=== PATIENT | female | born 1960 | race Caucasian/White ===

== ENCOUNTER → 2016-12-12 | Outpatient (CLI) | payer OTHER ==
--- NOTE | 2016-12-12 15:00 | ECHOCARDIOGRAM REPORT ---
*NOTICE TO RECEIVING DEMOCRAT AGENCY This information is strictly Confidential and protected under [place] law. [place] law prohibits you from making any further disclosure of this information unless further disclosure is expressly permitted by the written consent of the person to whom it pertains or is authorized by law. A general authorization for the release of medical or other information is not sufficient for this purpose. Hospital accepts no responsibility if the information is made available to any other person, INCLUDING THE PATIENT. Interpretation Summary * Name: SHAZIA PEDRAZA Study Date: 12/12/2016 01:42 PM BP: 145/68 mmHg * Patient Location: [facility] HR: 81 * : 1960 (M/d/yyyy) Gender: Female Height: 64 in * Age: 56 yrs Ethnicity: [place] Weight: 182 lb * Ordering Physician: Samantha Gamez * Referring Physician: Samantha Gamez * Performed By: Raya Ayala RDCS * * Reason For Study: Murmurs * BSA: 1.9 m2 * -- Conclusions -- * The left ventricle is borderline dilated. * Left ventricular systolic function is normal. * Grade I diastolic dysfunction, (abnormal relaxation pattern). * Right ventricular systolic pressure is normal. Procedure Details * A complete two-dimensional transthoracic echocardiogram was performed (2D, M-mode, Doppler and color flow Doppler). Left Ventricle * The left ventricle is borderline dilated. * There is normal left ventricular wall thickness. * Ejection Fraction = 65-70%. * Left ventricular systolic function is normal. * Grade I diastolic dysfunction, (abnormal relaxation pattern). * The left ventricular wall motion is normal. Right Ventricle * The right ventricle is normal in size and function. Atria * The left atrial size is normal. * Right atrial size is normal. Mitral Valve * The mitral valve anatomy is normal. * There is no mitral regurgitation noted. Tricuspid Valve * The tricuspid valve is not well visualized, but is grossly normal. * There is mild tricuspid regurgitation. * Right ventricular systolic pressure is normal. Aortic Valve * The aortic valve is normal in structure and function. * No hemodynamically significant valvular aortic stenosis. * There is no significant aortic regurgitation. Pericardium/Pleural * There is no pericardial effusion. MMode 2D Measurements and Calculations IVSd 0.74 cm LVIDd 5.2 cm LVIDs 3.0 cm LVPWd 0.81 cm IVS/LVPW 0.91 FS 42.2 % EDV(Teich) 127.0 ml ESV(Teich) 34.5 ml EF(Teich) 72.8 % EDV(cubed) 137.1 ml ESV(cubed) 26.5 ml EF(cubed) 80.6 % LV mass(C)d 136.9 grams LV mass(C)dI 72.9 grams/m\S\2 SV(Teich) 92.5 ml SI(Teich) 49.2 ml/m\S\2 SV(cubed) 110.5 ml SI(cubed) 58.8 ml/m\S\2 Ao root diam 2.7 cm Ao root area 5.7 cm\S\2 ACS 1.6 cm LA dimension 3.1 cm asc Aorta Diam 2.8 cm LA/Ao 1.2 LVOT diam 1.9 cm LVOT area 2.8 cm\S\2 LVAd ap4 29.3 cm\S\2 LVLd ap4 7.6 cm EDV(MOD-sp4) 93.7 ml EDV(sp4-el) 96.2 ml LVAs ap4 14.7 cm\S\2 LVLs ap4 5.7 cm ESV(MOD-sp4) 32.4 ml ESV(sp4-el) 32.5 ml EF(MOD-sp4) 65.4 % EF(sp4-el) 66.2 % LVAd ap2 17.8 cm\S\2 LVLd ap2 6.5 cm EDV(MOD-sp2) 40.3 ml EDV(sp2-el) 41.6 ml LVAs ap2 9.4 cm\S\2 LVLs ap2 5.6 cm ESV(MOD-sp2) 13.4 ml ESV(sp2-el) 13.3 ml EF(MOD-sp2) 66.7 % EF(sp2-el) 68.0 % LVLd %diff -17.38 % EDV(MOD-bp) 66.0 ml LVLs %diff -1.01 % ESV(MOD-bp) 20.9 ml EF(MOD-bp) 68.4 % SV(MOD-sp4) 61.3 ml SI(MOD-sp4) 32.6 ml/m\S\2 SV(MOD-sp2) 26.9 ml SI(MOD-sp2) 14.3 ml/m\S\2 SV(MOD-bp) 45.2 ml SI(MOD-bp) 24.0 ml/m\S\2 SV(sp4-el) 63.7 ml SI(sp4-el) 33.9 ml/m\S\2 SV(sp2-el) 28.3 ml SI(sp2-el) 15.0 ml/m\S\2 Doppler Measurements and Calculations MV E max jose manuel 96.0 cm/sec MV A max jose manuel 110.1 cm/sec MV E/A 0.87 MV dec time 0.26 sec Ao V2 max 236.8 cm/sec Ao max PG 22.4 mmHg Ao max PG (full) 9.1 mmHg RADHA(V,A) 2.2 cm\S\2 RADHA(V,D) 2.2 cm\S\2 LV V1 max PG 13.3 mmHg LV V1 max 182.4 cm/sec PA V2 max 139.8 cm/sec PA max PG 7.8 mmHg PA acc slope 621.5 cm/sec\S\2 PA acc time 0.15 sec TR max jose manuel 200.3 cm/sec PA pr(Accel) 10.9 mmHg
== END | disposition home or self-care (01) ==
LOC: C.CPL 13:33
PROVIDERS: ATTEND Family Medicine
DX: R01.1 Cardiac murmur, unspecified (principal)

== ENCOUNTER → 2016-12-17 | Outpatient (CLI) | payer OTHER ==
[2016-12-17 17:49] LABS: URINE APPEARANCE CLEAR (CLEAR); URINE BILIRUBIN NEG (NEG); URINE COLOR YELLOW; URINE NITRITE NEG (NEG); URINE SPECIFIC GRAVITY 1.006 (1.000-1.030); UROBILINOGEN NEG (NEG); ZZUR CULT IF INDIC CLEAN CATCH NO
[2016-12-17 17:55] LABS: MANUAL MICROSCOPIC REQUIRED? NO; REVIEW REQ? NO
[2016-12-17 18:14] LABS: ALT/SGPT 32 U/L (12-78); AST/SGOT 70 U/L (15-37); BLOOD UREA NITROGEN 4 mg/dl (7-18); BUN/CREATININE RATIO 5.6 (10-20); CALCIUM 8.4 mg/dl (8.5-10.1); CARBON DIOXIDE 23 mmol/L (21-32); CHLORIDE 109 mmol/L (98-107); CREATININE 0.77 mg/dl (0.60-1.20); GLUCOSE 108 mg/dl (70-99); POTASSIUM 3.4 mmol/L (3.5-5.1); SODIUM 141 mmol/L (136-145)
[2016-12-17 18:16] LABS: ALB/GLOB RATIO 0.7 (0.9-2); ALKALINE PHOSPHATASE 140 U/L (45-117)
== END | disposition home or self-care (01) ==
LOC: C.LABBFT 15:23
PROVIDERS: ATTEND Family Medicine
DX: R30.0 Dysuria (principal); K74.60 Unspecified cirrhosis of liver

== ENCOUNTER → 2017-01-23 | Outpatient (CLI) | payer OTHER ==
[2017-01-23 16:46] LABS: ALT/SGPT 42 U/L (12-78); AST/SGOT 69 U/L (15-37); BLOOD UREA NITROGEN 7 mg/dl (7-18); BUN/CREATININE RATIO 7.9 (10-20); CALCIUM 8.8 mg/dl (8.5-10.1); CARBON DIOXIDE 27 mmol/L (21-32); CHLORIDE 107 mmol/L (98-107); GLUCOSE 108 mg/dl (70-99); POTASSIUM 3.9 mmol/L (3.5-5.1); SODIUM 139 mmol/L (136-145)
[2017-01-23 16:49] LABS: ALB/GLOB RATIO 0.7 (0.9-2); ALKALINE PHOSPHATASE 144 U/L (45-117)
== END | disposition home or self-care (01) ==
LOC: C.LABBFT 15:51
PROVIDERS: ATTEND Family Medicine
DX: K74.60 Unspecified cirrhosis of liver (principal)

== ENCOUNTER → 2017-02-14 | Outpatient (CLI) | payer OTHER ==
--- NOTE | 2017-02-14 07:46 | DIAGNOSTIC IMAGING REPORT ---
ABDOMINAL ULTRASOUND, RIGHT UPPER QUADRANT HISTORY: K74.60 Unspecified cirrhosis of liver. COMPARISON: None. FINDINGS: There is coarsening of hepatic echotexture. The liver is heterogeneous. No hepatic lesions are identified although sensitivity is diminished on this exam. There is no biliary ductal dilatation status post cholecystectomy. The common bile duct measures 3 mm in caliber. The pancreatic body is normal. The head and tail are obscured. There is no right hydronephrosis. IMPRESSION: 1. Coarsening of hepatic echotexture indicative of cirrhosis. No hepatic lesions identified although sensitivity diminished on this exam. 2. No biliary ductal dilatation status post cholecystectomy. Electronically signed by: Zachariah Srinivasan M.D. 02/14/2017 7:44 AM Dictated Date/Time: 02/14/2017 7:42 AM
== END | disposition home or self-care (01) ==
LOC: C.ULTR 06:57
PROVIDERS: ATTEND Physician Assistant
DX: K74.60 Unspecified cirrhosis of liver (principal)

== ENCOUNTER → 2017-02-20 | Outpatient (CLI) | payer OTHER ==
[2017-02-20 12:41] LABS: CHOLESTEROL/HDL RATIO 3.9
== END | disposition home or self-care (01) ==
LOC: C.LABBFT 07:42
PROVIDERS: ATTEND Family Medicine
DX: Z00.00 Encounter for general adult medical examination without abnormal findings (principal); Z13.1 Encounter for screening for diabetes mellitus; Z13.220 Encounter for screening for lipoid disorders

== ENCOUNTER → 2017-02-24 | Outpatient (CLI) | payer OTHER ==
[2017-02-24 16:51] LABS: INR 1.2 (0.9-1.1); PROTHROMBIN TIME (PATIENT) 12.8 SECONDS (9.0-12.0)
[2017-02-24 17:01] LABS: ALT/SGPT 33 U/L (12-78); BLOOD UREA NITROGEN 8 mg/dl (7-18); CARBON DIOXIDE 23 mmol/L (21-32); CHLORIDE 106 mmol/L (98-107); GLUCOSE 154 mg/dl (70-99); POTASSIUM 3.5 mmol/L (3.5-5.1); SODIUM 138 mmol/L (136-145)
[2017-02-24 17:04] LABS: ALB/GLOB RATIO 0.6 (0.9-2); ALKALINE PHOSPHATASE 120 U/L (45-117); AST/SGOT 54 U/L (15-37)
[2017-02-24 17:15] LABS: BASO % 0.3 %; BASO ABS # 0.02 K/uL (0-0.2); COMPLETE YES; EOS % 1.4 %; HEMATOCRIT 38.4 % (37-47); IG% 0.2 %; LYMPH % 35.4 %; LYMPH ABS # 2.05 K/uL (1.2-3.4); MEAN CELL VOLUME 96.7 fL (80-100); MEAN CORPUSCULAR HGB CONC 35.2 g/dl (32-36); MONO % 6.2 %; NEUT % 56.5 %; PLATELET COUNT 81 K/uL (130-400); PLT ESTIMATE DECREASED; RED BLOOD COUNT 3.97 M/uL (4.2-5.4); WHITE BLOOD COUNT 5.79 K/uL (4.8-10.8)
[2017-02-26 10:31] LABS: AFP TUMOR MARKER SERUM 6.4 NG/ML (<6.1)
== END | disposition home or self-care (01) ==
LOC: C.LAB 15:56
PROVIDERS: ATTEND Physician Assistant
DX: K74.60 Unspecified cirrhosis of liver (principal); C56.9 Malignant neoplasm of unspecified ovary; C78.6 Secondary malignant neoplasm of retroperitoneum and peritoneum

== ENCOUNTER → 2017-03-07 | Outpatient (CLI) | payer OTHER ==
[~2017-03-07] MED LIST: GADOXETATE DISODIUM (NON-WT BASED PROCEDURE) IV PRN
--- NOTE | 2017-03-07 10:34 | DIAGNOSTIC IMAGING REPORT ---
LIVER MRI WITH AND WITHOUT INTRAVENOUS CONTRAST HISTORY: K74.60 Unspecified cirrhosis of [id number] Abnormal AF TECHNIQUE: Multiplanar multisequence MRI of the liver was performed both before and after the intravenous administration of 10 cc of Eovist contrast. COMPARISON STUDY: Abdominal ultrasound 02/14/2017. FINDINGS: Slightly nodular contour to the liver consistent with cirrhosis. Minimal perihepatic fluid. The spleen is mildly enlarged measuring 15 cm in AP dimension. Cholecystectomy. Prior midline incision. The pancreas and right kidney are unremarkable. A 7 mm cyst within the lower pole the left kidney. No intrahepatic bile duct dilatation. The common bile duct measures 5 mm. There is a 2.4 x 2.1 cm T2 hyperintense, T1 hypointense lobular lesion within segment 7 of the liver. This is not hypervascular and demonstrates discontinuous peripheral nodular enhancement with partial filling on the portal venous phase. The 20 minute delayed images demonstrate faint washout. This lesion is most likely a hemangioma. However, the lack of incomplete washout on the 20 minute delayed sequences is somewhat usual. This is likely explained by the overall hepatocellular dysfunction/cirrhosis. IMPRESSION: 1. A 2.4 x 2.1 cm lesion within segment 7 of the liver which most likely represents a hemangioma as described above. Recommend six-month to one year MRI follow-up with Gadavist contrast instead of Eovist contrast for confirmation. 2. No hypervascular liver lesions. 3. Cholecystectomy. 4. Hepatic cirrhosis with minimal perihepatic fluid. 5. Mild splenomegaly Electronically signed by: Tylor Montalvo M.D. 03/07/2017 10:32 AM Dictated Date/Time: 03/07/2017 10:14 AM
== END | disposition home or self-care (01) ==
LOC: C.MRIBC 07:34
PROVIDERS: ATTEND Physician Assistant
DX: K74.60 Unspecified cirrhosis of liver (principal); K76.9 Liver disease, unspecified; Z90.49 Acquired absence of other specified parts of digestive tract

== ENCOUNTER → 2017-04-01 | Outpatient (CLI) | payer OTHER ==
--- NOTE | 2017-04-02 14:21 | MAMMOGRAPHY REPORT ---
BILATERAL DIGITAL SCREENING MAMMOGRAM TOMOSYNTHESIS WITH CAD: 04/01/2017 CLINICAL HISTORY: Routine screening. Patient has no complaints. TECHNIQUE: Breast tomosynthesis in addition to standard 2D mammography was performed. Current study was also evaluated with a Computer Aided Detection (CAD) system. COMPARISON: Comparison is made to exams dated: 02/27/2016 mammogram, 10/12/2014 mammogram, 07/26/2013 moiz mogram, and 07/16/2011 mammogram. BREAST COMPOSITION: The tissue of both breasts is almost entirely fatty. FINDINGS: There is stable subareolar asymmetry bilaterally. A few scattered stable benign-appearing microcalcifications. No new suspicious mass, architectural distortion or cluster of microcalcificati ons is seen. IMPRESSION: ACR BI-RADS CATEGORY 1: NEGATIVE There is no mammographic evidence of malignancy. A 1 year screening mammogram is recommended. The pa tient will receive written notification of the results. Approximately 10% of breast cancers are not detected with mammography. A negative mammographic report should not delay biopsy if a clinically suggestive mass is present. Domenica Milan M.D. ay/:04/01/2017 18:28:02 Supervisor Dyer: Dana YAO(Azeb)(Nicholas), [facility] letter sent: Normal 1/2 BI-RADS Code: ACR BI-RADS Category 1: Negative
== END | disposition home or self-care (01) ==
LOC: C.MAMM 15:41
PROVIDERS: ATTEND Family Medicine
DX: Z12.31 Encounter for screening mammogram for malignant neoplasm of breast (principal)

== ENCOUNTER → 2017-04-04 | Outpatient (CLI) | payer OTHER | END | disposition home or self-care (01) | LOC: C.LABBFT 15:44 | PROVIDERS: ATTEND Family Medicine | DX: K72.90 Hepatic failure, unspecified without coma (principal) ==

== ENCOUNTER → 2017-06-04 | Outpatient (CLI) | payer OTHER ==
[2017-06-04 17:48] LABS: ALT/SGPT 26 U/L (12-78); BLOOD UREA NITROGEN 8 mg/dl (7-18); BUN/CREATININE RATIO 9.1 (10-20); CALCIUM 8.8 mg/dl (8.5-10.1); CARBON DIOXIDE 23 mmol/L (21-32); CHLORIDE 104 mmol/L (98-107); CREATININE 0.91 mg/dl (0.60-1.20); GLUCOSE 141 mg/dl (70-99); POTASSIUM 3.5 mmol/L (3.5-5.1); SODIUM 136 mmol/L (136-145)
[2017-06-04 17:51] LABS: ALB/GLOB RATIO 0.7 (0.9-2); ALKALINE PHOSPHATASE 140 U/L (45-117); AST/SGOT 51 U/L (15-37)
== END | disposition home or self-care (01) ==
LOC: C.LABBFT 15:41
PROVIDERS: ATTEND Family Medicine
DX: K74.60 Unspecified cirrhosis of liver (principal)

== ENCOUNTER → 2017-06-26 | Outpatient (CLI) | payer OTHER | END | disposition home or self-care (01) | LOC: C.LAB 16:11 | PROVIDERS: ATTEND Internal Medicine Hematology & Oncology | DX: C56.9 Malignant neoplasm of unspecified ovary (principal); C78.6 Secondary malignant neoplasm of retroperitoneum and peritoneum; K72.90 Hepatic failure, unspecified without coma ==

== ENCOUNTER → 2017-09-06 | Outpatient (CLI) | payer OTHER ==
[2017-09-06 10:41] LABS: ALBUMIN 2.9 gm/dl (3.4-5.0); ALT/SGPT 26 U/L (12-78); BLOOD UREA NITROGEN 9 mg/dl (7-18); CALCIUM 8.8 mg/dl (8.5-10.1); CARBON DIOXIDE 24 mmol/L (21-32); CHOLESTEROL 140 mg/dl (0-200); GLUCOSE 108 mg/dl (70-99); POTASSIUM 3.7 mmol/L (3.5-5.1); SODIUM 139 mmol/L (136-145)
[2017-09-06 10:50] LABS: ALKALINE PHOSPHATASE 118 U/L (45-117); AST/SGOT 51 U/L (15-37); LDL CHOLESTEROL CALCULATED 80 mg/dl; TOTAL PROTEIN 7.8 gm/dl (6.4-8.2)
== END | disposition home or self-care (01) ==
LOC: C.LAB 09:25
PROVIDERS: ATTEND Family Medicine
DX: K72.90 Hepatic failure, unspecified without coma (principal); E83.42 Hypomagnesemia; E07.9 Disorder of thyroid, unspecified; E78.00 Pure hypercholesterolemia, unspecified

== ENCOUNTER → 2017-10-02 | Outpatient (CLI) | payer OTHER ==
[2017-10-02 17:56] LABS: ALBUMIN 2.7 gm/dl (3.4-5.0); TOTAL PROTEIN 7.3 gm/dl (6.4-8.2)
== END | disposition home or self-care (01) ==
LOC: C.LABBFT 15:28
PROVIDERS: ATTEND Internal Medicine Hematology & Oncology
DX: C56.9 Malignant neoplasm of unspecified ovary (principal); C78.6 Secondary malignant neoplasm of retroperitoneum and peritoneum

== ENCOUNTER → 2017-11-03 | Outpatient (CLI) | payer OTHER ==
[~2017-11-03] MED LIST changes: +GADAVIST IV PRN; -GADOXETATE DISODIUM (NON-WT BASED PROCEDURE) IV PRN
[2017-11-03 13:33] LABS: INR 1.3 (0.9-1.1)
[2017-11-03 13:55] LABS: HEMOGLOBIN 13.8 g/dL (12.0-16.0); MEAN CELL VOLUME 96.8 fL (80-100); MEAN CORPUSCULAR HEMOGLOBIN 34.2 pg (25-34); MEAN CORPUSCULAR HGB CONC 35.4 g/dl (32-36); MEAN PLATELET VOLUME 9.6 fL (7.4-10.4); PLATELET COUNT 75 K/uL (130-400); RED CELL DISTRIBUTION WIDTH SD 60.2 fL (36.4-46.3); WHITE BLOOD COUNT 6.87 K/uL (4.8-10.8)
[2017-11-03 13:57] LABS: BASO % 0.3 %; BASO ABS # 0.02 K/uL (0-0.2); EOS % 0.6 %; EOS ABS # 0.04 K/uL (0-0.5); IG# 0.05 K/uL (0.00-0.02); LYMPH % 27.1 %; LYMPH ABS # 1.86 K/uL (1.2-3.4); MONO % 7.9 %; MONO ABS # 0.54 K/uL (0.11-0.59); NEUT % 63.4 %; NEUT ABS # 4.36 K/uL (1.4-6.5)
--- NOTE | 2017-11-03 14:08 | DIAGNOSTIC IMAGING REPORT ---
MRI LIVER COMBO CLINICAL HISTORY: K76.9 hepatic mass TECHNIQUE: Imaging was acquired in the axial and coronal planes, before and after the administration of 8 cc of intravenous Gadavist. COMPARISON STUDY: MRI the liver dated 03/07/2017, abdominal ultrasound dated 02/14/2017 FINDINGS: There is trace perihepatic fluid. The spleen is mildly enlarged measuring 13.1 cm. There is no evidence of biliary or pancreatic ductal dilatation. No pancreatic masses are visualized. No adrenal masses are visualized. No solid renal masses are visualized. The liver has a cirrhotic morphology. There is a T1 hypointense T2 hyperintense 27 mm mass within segment 7 of the liver. This demonstrates approximately 2 mm of interval growth when compared the prior study. There is and element of nodular peripheral enhancement on the post gadolinium images, but this remains incomplete on the 6 minute delayed image. Although a hemangioma is favored, imaging characteristics remain indeterminate. IMPRESSION: 1. Suspected hepatic cirrhosis with trace perihepatic fluid 2. Mild splenomegaly 3. Minimal interval growth in the 27 mm mass within segment 7 of the liver. Although a hemangioma is favored, the enhancement characteristics remain indeterminate. Electronically signed by: Sal Connor M.D. 11/03/2017 2:06 PM Dictated Date/Time: 11/03/2017 1:43 PM
[2017-11-03 14:12] LABS: ALBUMIN 2.9 gm/dl (3.4-5.0); ALT/SGPT 39 U/L (12-78); AST/SGOT 54 U/L (15-37); BLOOD UREA NITROGEN 9 mg/dl (7-18); CARBON DIOXIDE 23 mmol/L (21-32); CREATININE 0.97 mg/dl (0.60-1.20); GLUCOSE 109 mg/dl (70-99); POTASSIUM 3.8 mmol/L (3.5-5.1); SODIUM 134 mmol/L (136-145)
[2017-11-03 14:15] LABS: ALKALINE PHOSPHATASE 134 U/L (45-117); TOTAL PROTEIN 7.5 gm/dl (6.4-8.2)
== END | disposition home or self-care (01) ==
LOC: C.MRI 12:10
PROVIDERS: ATTEND Physician Assistant
DX: K76.9 Liver disease, unspecified (principal); K74.60 Unspecified cirrhosis of liver; R77.2 Abnormality of alphafetoprotein

== ENCOUNTER → 2017-11-14 | Outpatient (CLI) | payer OTHER ==
--- NOTE | 2017-11-14 12:04 | DIAGNOSTIC IMAGING REPORT ---
LIVER SCAN RBC TAG STUDY HISTORY: K74.60 Unspecified cirrhosis of [id number] Hepatic encephalopathy TECHNIQUE: Immediately following the intravenous administration of 25 mCi of technetium 99 M ultra tag, dynamic and SPECT imaging of the abdomen was performed. COMPARISON STUDY: Abdominal MRI 11/03/2017. FINDINGS: Images demonstrate radiotracer uptake within the segment 7 hepatic lesion. Therefore, this is consistent with a hemangioma as described on the prior MRI. No additional lesions identified within the liver. IMPRESSION: Radiotracer uptake within the segment 7 hepatic lesion confirms the suspected diagnosis of a hemangioma. Electronically signed by: Tylor Montalvo M.D. 11/14/2017 12:03 PM Dictated Date/Time: 11/14/2017 11:57 AM
== END | disposition home or self-care (01) ==
LOC: C.NUCL 08:02
PROVIDERS: ATTEND Physician Assistant
DX: K74.60 Unspecified cirrhosis of liver (principal); K72.90 Hepatic failure, unspecified without coma; K76.9 Liver disease, unspecified

== ENCOUNTER → 2017-12-05 | Outpatient (CLI) | payer OTHER ==
[2017-12-05 17:53] LABS: HEMATOCRIT 35.4 % (37-47); HEMOGLOBIN 12.4 g/dL (12.0-16.0); MEAN CELL VOLUME 95.7 fL (80-100); MEAN CORPUSCULAR HEMOGLOBIN 33.5 pg (25-34); RED CELL DISTRIBUTION WIDTH CV 16.4 % (11.5-14.5); WHITE BLOOD COUNT 6.19 K/uL (4.8-10.8)
[2017-12-05 18:01] LABS: MEAN PLATELET VOLUME 10.6 fL (7.4-10.4); PLATELET COUNT 77 K/uL (130-400)
[2017-12-05 18:31] LABS: ALBUMIN 2.6 gm/dl (3.4-5.0); ALKALINE PHOSPHATASE 139 U/L (45-117); ALT/SGPT 27 U/L (12-78); AST/SGOT 53 U/L (15-37); BLOOD UREA NITROGEN 6 mg/dl (7-18); CALCIUM 8.2 mg/dl (8.5-10.1); CARBON DIOXIDE 24 mmol/L (21-32); CREATININE 0.94 mg/dl (0.60-1.20); GLUCOSE 103 mg/dl (70-99); POTASSIUM 3.6 mmol/L (3.5-5.1); SODIUM 134 mmol/L (136-145); TOTAL PROTEIN 7.3 gm/dl (6.4-8.2)
[2017-12-05 19:07] LABS: HEP C IGG 13 YRS+OLDER_RFLX NEG (NEG)
[2017-12-08 14:53] LABS: ANA SCREEN TC 249X NEGATIVE (NEGATIVE)
== END | disposition home or self-care (01) ==
LOC: C.LAB 16:21
PROVIDERS: ATTEND Physician Assistant
DX: K75.81 Nonalcoholic steatohepatitis (NASH) (principal)

== ENCOUNTER → 2018-03-04 | Outpatient (CLI) | payer OTHER ==
[~2018-03-04] MED LIST changes: +ACET300T3 PO; -GADAVIST IV PRN; +PRLSR20 PO; +RIFA550T2 PO; +SPIR50TA2 PO
== END | disposition home or self-care (01) ==
LOC: C.LABBFT 07:30
PROVIDERS: ATTEND Family Medicine
DX: Z13.1 Encounter for screening for diabetes mellitus (principal); Z13.220 Encounter for screening for lipoid disorders

== ENCOUNTER 2018-10-29 21:25 | Inpatient (IN) ==
[2018-10-29 22:14] LABS: Hematocrit (blood only) 30.1 % (37-47); Hemoglobin 10.2 g/dL (12.0-16.0); Mean Corpuscular Hgb Conc 33.9 g/dL (32-36); Mean Corpuscular Volume 100.7 fL (80-100); RDW Standard Deviation 65.4 fL (36.4-46.3); Red Blood Count 2.99 M/uL (4.2-5.4); White Blood Count 9.65 K/uL (4.8-10.8)
--- NOTE | 2018-10-29 22:18 | XRay Report ---
SINGLE VIEW CHEST CLINICAL HISTORY: Dyspnea. FINDINGS: An AP, portable, upright chest radiograph is compared to study dated 04/23/2018. The examina tion is degraded by portable technique and patient rotation. The heart is title normal for projectio n. There is pulmonary vascular congestion. Bibasilar airspace opacities are noted. No large pleural e ffusion is identified. No pneumothorax is seen. The skeletal structures are osteopenic. The bony thor ax is grossly intact. IMPRESSION: 1. Findings are consistent with congestive failure. 2. Bibasilar airspace opacities likely represent atelectasis. Clinical correlation will be required. 3. No large pleural effusion is seen. Electronically signed by: Vinh Johnson M.D. 10/29/2018 10:17 PM
[2018-10-29 22:25] LABS: INR 1.8 (0.9-1.1); Partial Thromboplastin Ratio 1.2; Partial Thromboplastin Time 33.4 Seconds (21.0-31.0); Prothrombin Time 17.8 Seconds (9.0-12.0)
[2018-10-29 22:42] LABS: Albumin Globulin Ratio 0.5 (0.9-2); Albumin Level 2.2 gm/dl (3.4-5.0); Calcium 8.1 mg/dl (8.5-10.1); Creatinine Clr Calc Pharmacy 53.9 ml/min; Est GFR (African American) 54.4; Est GFR (Non-African American) 46.9; Globulin 4.8 gm/dl (2.5-4.0); Mean Platelet Volume 10.9 fL (7.4-10.4); Platelet Count 65 K/uL (130-400); Potassium 3.7 mmol/L (3.5-5.1); Troponin I 0.029 ng/ml (0-0.045)
[2018-10-29 22:43] LABS: Basophils # (auto) 0.01 K/uL (0-0.2); Basophils % (auto) 0.1 %; Immature Granulocytes # (auto) 0.11 K/uL (0.00-0.02); Immature Granulocytes % (auto) 1.1 %; Lymphocytes # (auto) 0.74 K/uL (1.2-3.4); Lymphocytes % (auto) 7.7 %; Monocytes # (auto) 0.88 K/uL (0.11-0.59); Monocytes % (auto) 9.1 %; Neutrophils # (auto) 7.91 K/uL (1.4-6.5); Polychromasia 1+; Toxic Vacuolation 1+
[2018-10-29] MEDS ORDERED: ALBUT/IPRATROP 3MG/0.5MG NEB 3 ML VIAL NEB STA (22:56)
[2018-10-29 23:06] LABS: Influenza B virus by PCR Neg for Influ B (Neg)
[2018-10-29] MEDS ORDERED: OPTIRAY 320 125ml IV PRN (23:25)
[2018-10-30 00:06] LABS: Appearance Urine Clear (Clear); Blood Urine Negative (Negative); Color Urine Yellow; Glucose Urine UA Negative (Negative); Ketones Urine Negative (Negative); Leukocyte Esterase Urine Negative (Negative); Nitrite Urine Negative (Negative); Protein Urine Negative (Negative); Specific Gravity Urine <= 1.005 (1.000-1.030); Urobilinogen Urine Positive (Negative); pH Urine 6.5 (4.5-7.5)
[2018-10-30 00:11] LABS: Bilirubin Urine Negative (Negative); Ictotest Urine Negative (Negative)
[2018-10-30] MEDS ORDERED: DOXYCYCLINE HYCLATE 100 MG CAP PO STA (00:54)
--- NOTE | 2018-10-30 01:33 | Emergency Department Note ---
Entered by Lisa Meyers acting as a scribe for David Jensen M.D. History of Present Illness General Chief complaint: Shortness of Breath/Dyspnea Stated complaint: SOB- OVARIAN CANCER, LIVER DISEASE Source: patient History of Present Illness Onset (ago): day(s) 3 Location: chest Severity: similar to prior episodes Pain Consistency: + other (persistent) Maximum Pain Intensity: 10 Quality: + other (shortness of breath) Associated symptoms: + chest pain (sharp), + cough (productive) and + other (positive tiredness); no nausea/vomiting The patient is a 58 year old female who presents to the Emergency Room with complaints of persistent shortness of breath that began 3 days prior to arrival. The patient states that she has had a persistent productive cough and a sharp pain in her chest during this time. She states that this is similar to a prior episode of pneumonia, but states that her current symptoms are more severe than before. The patient states that she has been tired during this time, and states that she has mostly slept over the past 3 days. She denies nausea. The patient states that she is not currently on chemotherapy. The patient states that she previously had an inhaler at home, but she states that she is currently out of this inhaler at home. Home Medications Home Medications Medication Instructions Recorded Confirmed Type omeprazole 20 mg PO DAILY 04/23/18 10/29/18 History rifaximin 550 mg PO AMHS 04/23/18 10/29/18 History spironolactone 50 mg PO TID 04/23/18 10/29/18 History ergocalciferol (vitamin D2) 50,000 unit PO WK 10/11/18 10/29/18 History [Vitamin D2] furosemide [Lasix] 20 mg PO DAILY 10/11/18 10/29/18 History Allergies Allergy/AdvReac Type Severity Reaction Status Date / Time levofloxacin Allergy Unknown Rash Verified 10/29/18 21:59 Penicillins Allergy Unknown Rash/Trouble Verified 10/29/18 21:59 Breathing Sulf Drugs Allergy Unknown Rash Uncoded 10/29/18 21:59 Past Med/Surg History Social History Preferred Language: Citizen Of [place] Feels Safe at Home: Yes Smoking Status: Former smoker Review of Systems See HPI for pertinent positives & negatives. and A total of 10 systems reviewed and were otherwise negative Physical Exam Vital Signs Vital Signs - 24 hr 10/29/18 21:27 10/29/18 21:53 10/29/18 22:38 Temperature 37.3 C Temperature Source Oral Sepsis Recent Fever Within 48 Hours No Sepsis Action Taken by Nursing No Action Required Pulse Rate 100 H Pulse Rate [Right Finger] 92 H Pulse Rhythm [Right Finger] Regular Pulse Strength [Right Finger] Normal Respiratory Rate 24 22 Respiratory Effort / Characteristics Spontaneous Non-Labored Respiratory Depth Normal Respiratory Pattern Regular Regular Blood Pressure 131/59 L Blood Pressure [Right Arm] 123/79 Blood Pressure Mean 83 Blood Pressure Mean [Right Arm] 93 Blood Pressure Position [Right Arm] Sitting Pulse Oximetry 91 93 91 Oxygen Delivery Method Room Air Room Air Room Air 10/29/18 22:56 10/29/18 23:54 10/30/18 01:16 Temperature Temperature Source Sepsis Recent Fever Within 48 Hours Sepsis Action Taken by Nursing Pulse Rate Pulse Rate [Right Finger] 98 H 98 H Pulse Rhythm [Right Finger] Pulse Strength [Right Finger] Respiratory Rate 22 22 Respiratory Effort / Characteristics Respiratory Depth Respiratory Pattern Blood Pressure Blood Pressure [Right Arm] 131/64 125/64 Blood Pressure Mean Blood Pressure Mean [Right Arm] 86 84 Blood Pressure Position [Right Arm] Pulse Oximetry 91 91 92 Oxygen Delivery Method Room Air Room Air Room Air GENERAL: Awake, alert, in no distress. Appears chronically ill and fatigued. Mildly jaundice appearing. HENT: Normocephalic, atraumatic. EYES: Normal conjunctiva. Sclera icteric. NECK: Supple. No nuchal rigidity. RESPIRATORY: Mildly tachypneic. Slight increased work of breathing. Diminished bases. No wheezes. CARDIAC: Normal rate. Normal rhythm. Extremities warm and well perfused. GI: Soft, non-distended. No tenderness to palpation. No rebound or guarding. No masses. RECTAL: Deferred. MUSCULOSKELETAL: Atraumatic. Chest examination reveals no tenderness. LOWER EXTREMITIES: Calves are equal size bilaterally and non-tender. 2+ bilateral lower extremity swelling. NEURO: Normal sensorium. No sensory or motor deficits noted. No facial droop. SKIN: Warm and dry. No rash. Mildly jaundice appearing. Course 2157: The patient was evaluated in room A10, and a complete history and physical examination were performed. 0051: [facility] for further evaluation. Consultations Consultation #1: [facility] for further evaluation. Time: 00:51 Administered Medications Ioversol (Optiray 320 125ml) 125 ml IV ONCE PRN PRN Reason: Interaction Checking Stop: 11/02/18 23:24 Last Admin: 10/29/18 23:25 Dose: 110 ml Documented by: [id number] Discontinued Medications Albuterol (Duoneb) 3 ml NEB NOW STA Stop: 10/29/18 22:57 Last Admin: 10/29/18 23:04 Dose: 3 ml Documented by: [id number] Doxycycline Hyclate (Vibramycin) 100 mg PO NOW STA Stop: 10/30/18 00:55 Last Admin: 10/30/18 01:13 Dose: 100 mg Documented by: [id number] Medical Decision Making Differential Diagnosis Differential diagnosis: Etiologies such as infections, reactive airway disease, COPD, pneumonia, pleural effusion, pulmonary edema, ARDS, pneumothorax, CHF, cardiac ischemia, cardiac tamponade, dysrhythmia, anemia, pulmonary embolism, musculoskeletal, ga strointestinal process, as well as others were entertained. Home Medications Current Medication List: was personally reviewed by me Laboratory Data Attestation: I reviewed the patient's lab results. Result diagrams: 10/29/18 21:53 10/29/18 21:53 Lab Results 10/29/18 10/29/18 10/29/18 Range/Units 21:53 21:53 21:53 WBC 9.65 (4.8-10.8) K/uL RBC 2.99 L (4.2-5.4) M/uL Hgb 10.2 L (12.0-16.0) g/dL Hct 30.1 L (37-47) % MCV 100.7 H (80-100) fL MCH 34.1 H (25-34) pg MCHC 33.9 (32-36) g/dL RDW Std Deviation 65.4 H (36.4-46.3) fL RDW Coeff of Elysia 18.0 H (11.5-14.5) % Plt Count 65 L (130-400) K/uL MPV 10.9 H (7.4-10.4) fL Immature Gran % (Auto) 1.1 % Neut % (Auto) 82.0 % Lymph % (Auto) 7.7 % Morgan % (Auto) 9.1 % Eos % (Auto) 0.0 % Baso % (Auto) 0.1 % Immature Gran # (Auto) 0.11 H (0.00-0.02) K/uL Neut # (Auto) 7.91 H (1.4-6.5) K/uL Lymph # (Auto) 0.74 L (1.2-3.4) K/uL Morgan # (Auto) 0.88 H (0.11-0.59) K/uL Eos # (Auto) 0.00 (0-0.5) K/uL Baso # (Auto) 0.01 (0-0.2) K/uL Toxic Vacuolation 1+ Polychromasia 1+ PT 17.8 H (9.0-12.0) Seconds INR 1.8 H (0.9-1.1) APTT 33.4 H (21.0-31.0) Seconds PTT Ratio 1.2 Sodium 131 L (136-145) mmol/L Potassium 3.7 (3.5-5.1) mmol/L Chloride 97 L (98-107) mmol/L Carbon Dioxide 23 (21-32) mmol/L Anion Gap 10.0 (3-11) BUN 13 (7-18) mg/dl Creatinine 1.26 H (0.6-1.2) mg/dl Est Cr Clr Drug Dosing 53.9 ml/min Est GFR ( Amer) 54.4 Est GFR (Non-Af Amer) 46.9 BUN/Creatinine Ratio 10.0 (10-20) Glucose 121 H (70-99) mg/dl Calcium 8.1 L (8.5-10.1) mg/dl Total Bilirubin 6.0 H (0.2-1) mg/dl AST 172 H (15-37) U/L ALT 49 (12-78) U/L Alkaline Phosphatase 103 (45-117) U/L Ammonia (11-32) umol/L Troponin I 0.029 (0-0.045) ng/ml Total Protein 7.0 (6.4-8.2) gm/dl Albumin 2.2 L (3.4-5.0) gm/dl Globulin 4.8 H (2.5-4.0) gm/dl Albumin/Globulin Ratio 0.5 L (0.9-2) Urine Color Urine Appearance (Clear) Urine pH (4.5-7.5) Ur Specific [place] (1.000-1.030) Urine Protein (Negative) Urine Glucose (UA) (Negative) Urine Ketones (Negative) Urine Blood (Negative) Urine Nitrite (Negative) Urine Bilirubin (Negative) Urine Urobilinogen (Negative) Ur Leukocyte Esterase (Negative) Influenza Type A (PCR) (Neg) Influenza Type B (PCR) (Neg) 10/29/18 10/29/18 10/29/18 Range/Units 22:14 23:33 23:52 WBC (4.8-10.8) K/uL RBC (4.2-5.4) M/uL Hgb (12.0-16.0) g/dL Hct (37-47) % MCV (80-100) fL MCH (25-34) pg MCHC (32-36) g/dL RDW Std Deviation (36.4-46.3) fL RDW Coeff of Elysia (11.5-14.5) % Plt Count (130-400) K/uL MPV (7.4-10.4) fL Immature Gran % (Auto) % Neut % (Auto) % Lymph % (Auto) % Morgan % (Auto) % Eos % (Auto) % Baso % (Auto) % Immature Gran # (Auto) (0.00-0.02) K/uL Neut # (Auto) (1.4-6.5) K/uL Lymph # (Auto) (1.2-3.4) K/uL Morgan # (Auto) (0.11-0.59) K/uL Eos # (Auto) (0-0.5) K/uL Baso # (Auto) (0-0.2) K/uL Toxic Vacuolation Polychromasia PT (9.0-12.0) Seconds INR (0.9-1.1) APTT (21.0-31.0) Seconds PTT Ratio Sodium (136-145) mmol/L Potassium (3.5-5.1) mmol/L Chloride (98-107) mmol/L Carbon Dioxide (21-32) mmol/L Anion Gap (3-11) BUN (7-18) mg/dl Creatinine (0.6-1.2) mg/dl Est Cr Clr Drug Dosing ml/min Est GFR ( Amer) Est GFR (Non-Af Amer) BUN/Creatinine Ratio (10-20) Glucose (70-99) mg/dl Calcium (8.5-10.1) mg/dl Total Bilirubin (0.2-1) mg/dl AST (15-37) U/L ALT (12-78) U/L Alkaline Phosphatase (45-117) U/L Ammonia 56.0 H (11-32) umol/L Troponin I (0-0.045) ng/ml Total Protein (6.4-8.2) gm/dl Albumin (3.4-5.0) gm/dl Globulin (2.5-4.0) gm/dl Albumin/Globulin Ratio (0.9-2) Urine Color Yellow Urine Appearance Clear (Clear) Urine pH 6.5 (4.5-7.5) Ur Specific [place] <= 1.005 (1.000-1.030) Urine Protein Negative (Negative) Urine Glucose (UA) Negative (Negative) Urine Ketones Negative (Negative) Urine Blood Negative (Negative) Urine Nitrite Negative (Negative) Urine Bilirubin Negative (Negative) Urine Urobilinogen Positive H (Negative) Ur Leukocyte Esterase Negative (Negative) Influenza Type A (PCR) Pos for Influ A A* (Neg) Influenza Type B (PCR) Neg for Influ B (Neg) Imaging Data Radiologist's Impression: Radiology results as stated below per my review and the radiologist's interpretation: SINGLE VIEW CHEST CLINICAL HISTORY: Dyspnea. FINDINGS: An AP, portable, upright chest radiograph is compared to study dated 04/23/2018. The examination is degraded by portable technique and patient rotation. The heart is title normal for projection. There is pulmonary vascular congestion. Bibasilar airspace opacities are noted. No large pleural effusion is identified. No pneumothorax is seen. The skeletal structures are osteopenic. The bony thorax is grossly intact. IMPRESSION: 1. Findings are consistent with congestive failure. 2. Bibasilar airspace opacities likely represent atelectasis. Clinical correlation will be required. 3. No large pleural effusion is seen. Electronically signed by: Vinh Johnson M.D. 10/29/2018 10:17 PM CTA CHEST: Splenomegaly, cirrhotic liver, moderate ascites No PE Multifocal groundglass opacities can represent areas of atypical infection, hemorrhage, inflammation, or edema. Radiologist: Anson Sharma MD ECG Data Attestation: I personally reviewed and interpreted this ECG as follows: Indication: SOB/dyspnea Rate (beats per minute): 96 Rhythm: normal sinus Findings: + other (non-specific T wave changes); no PVC and no ST elevation Blood Pressure Blood Pressure Findings: Normal blood pressure MDM Narrative Patient is a 58-year-old female history of cirrhosis therapy presented today complaining of 3 days of significant fatigue with shortness of breath. States she is concerns for pneumonia. States leg swelling is at baseline or slightly improved. Patient without significant leukocytosis here. Elect lites and kidney function appears at baseline. Troponin is slightly detectable but this has been noted in the past. Chest x-ray concerning for possible congestive failure versus atelectasis. CT scan of the chest was completed to evaluate for possible pneumonia or PE. Influenza testing completed as well and does show influenza A. Doubt this is acute pancreatitis or hepatitis. Fairly benign abdomen at this time. Not on anticoagulation. CT of the chest was completed and showed no acute PE. Groundglass opacities per preliminary radiology report noted. I am concerned this could represent CAP. Given the positive influenza, her generalized deconditioned weakened state, and possible pneumonia believe admission is in her best interest. Given multiple allergies given doxycycline and hospitalist contacted. Outside the window for Tamiflu. Impression & Plan Influenza A, Community acquired pneumonia, Weakness Discharge Plan Visit Data Chief Complaint: Shortness of Breath/Dyspnea Stated Complaint: SOB- OVARIAN CANCER, LIVER DISEASE ED Provider: David Jensen Discharge Problem: Influenza A, Community acquired pneumonia, Weakness Patient Disposition: Being Evaluated by Hospitalist Forms Stand Alone Forms: My [facility] Prescriptions Prescriptions: No Action omeprazole 20 mg Capsule,Delayed Release(Dr/Ec) 20 mg PO DAILY RF: 0 spironolactone 50 mg Tablet 50 mg PO TID RF: 0 rifaximin 550 mg Tablet 550 mg PO AMHS RF: 0 furosemide [Lasix] 20 mg Tablet 20 mg PO DAILY RF: 0 ergocalciferol (vitamin D2) [Vitamin D2] 50,000 unit Capsule 50,000 unit PO WK RF: 0 Referrals Referrals: Samantha Gamez MD [Primary Care Provider] - Discharge Problem: Community acquired pneumonia Qualifiers: Laterality: unspecified laterality Qualified Code(s): J18.9 - Pneumonia, unspecified organism The scribe's documentation has been prepared under my direction and personally reviewed by me in its entirety. I confirm that the note above accurately reflects all work, treatment, procedures, and medical decision making performed by me.
--- NOTE | 2018-10-30 02:12 | History & Physical Report ---
Date of Service October 30, 2018 Assessment & Plan (1) Influenza A: Patient positive for influenza A. Experiencing shortness of breath. Medically compromised due to history of liver cirrhosis. -Admit to medical floor with telemetry monitoring -Tamiflu 75 mg p.o. twice daily -Droplet precautions Present on Admission?: Yes (2) Community acquired pneumonia: Concern for community-acquired pneumonia in setting of influenza A. Diffuse groundglass opacities noted on CT chest. She is presently afebrile with no leukocytosis, mildly hypoxic at 91% on room air. Patient with allergies to penicillin and Levaquin -Check blood culture -Pro-calcitonin -Doxycycline 100 mg IV twice daily -Mucinex twice daily -Nebs as needed -Supplemental oxygen as needed to maintain saturation greater than 94% -Incentive spirometry every 2 hours -Tylenol as needed for pain or fever Present on Admission?: Yes (3) Cirrhosis: Patient with history of cirrhosis thought to be secondary to fatty liver disease. She follows with hepatology at [facility]. She had an EGD performed in 2016 which showed no varices. She had a colonoscopy performed in 2012. Liver parameters are slightly worse than prior to include a bilirubin of 6, INR 1.8, albumin of 2.2. Patient with no appreciable ascites on physical exam however it is mentioned in her CT. No encephalopathy or asterixis. Presently child class C, MELD score of 26. Patient with elevated ammonia at 56 -We will administer a bottle of 25% albumin -Continue home Lasix, rifaximin, spironolactone at home dose -Repeat LFTs and coags in the morning -Consider lactulose -Consider GI consult (4) Ovarian cancer: Patient diagnosed with ovarian cancer in 2010. She comments that it had low malignant potential. Underwent surgical excision, total abdominal hysterectomy in 2010. -Continue outpatient follow-up is arranged F/E/N -albumin 25% x1 bottle, monitor electrolytes and replete as needed, low- sodium diet as tolerated Ppx: SCDs, platelets equal 65 Code: Full per discussion with patient Dispo: 260-1 History of Present Illness Chief Complaint: Shortness of breath Primary Care Provider: Samantha Gamez MD Mrs. Cordero is a 58-year-old female with history of cirrhosis of the liver secondary to fatty liver disease, ovarian cancer status post surgical excision presenting with shortness of breath. Patient reports a dry cough for the last 4 days associated with substernal chest pain and progressive shortness of breath. Patient also reports dizziness. Upon arrival to the ER she was afebrile, hemodynamically stable, tachypneic with respiratory rate of 24, saturating 91% on room air. Laboratory workup revealed positive influenza A, abnormal LFTs consistent with cirrhotic liver. CTA of the chest with multifocal groundglass opacities. Patient reports that she did receive a flu shot this year. She denies sick contacts or recent travel. Denies symptoms consistent with viral URI, fevers, chills, or sweats. No additional complaints at this time. ER course: Albuterol, doxycycline Allergies Allergy/AdvReac Type Severity Reaction Status Date / Time levofloxacin Allergy Unknown Rash Verified 10/29/18 21:59 Penicillins Allergy Unknown Rash/Trouble Verified 10/29/18 21:59 Breathing Sulf Drugs Allergy Unknown Rash Uncoded 10/29/18 21:59 Home Medications Home Medications Medication Instructions Recorded Confirmed Type omeprazole 20 mg PO DAILY 04/23/18 10/29/18 History rifaximin 550 mg PO AMHS 04/23/18 10/29/18 History spironolactone 50 mg PO TID 04/23/18 10/29/18 History ergocalciferol (vitamin D2) 50,000 unit PO WK 10/11/18 10/29/18 History [Vitamin D2] furosemide [Lasix] 20 mg PO DAILY 10/11/18 10/29/18 History Past Med/Surg History Medical History Acute bronchitis (Inactive) Cirrhosis (Inactive) Ovarian cancer Surgical History History of appendectomy History of liver biopsy 01/01/18-performed at [facility] History of thyroid surgery History of total abdominal hysterectomy Social History Preferred Language: Tongan Communication Ability: Effective 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 Patient with stable bilateral lower extremity edema. Physical Exam Vital Signs (Past 24 Hours): Last Vital Signs Temp 37.3 C 10/29/18 21:27 Pulse 98 H 10/30/18 01:16 Resp 22 10/30/18 01:16 BP 125/64 10/30/18 01:16 Pulse Ox 92 10/30/18 01:16 Physical Exam: General: patient resting comfortably, NAD, chronically ill in appearance, AA&O x 4 Skin: warm, dry, intact, jaundice, scattered ecchymoses on bilateral forearms, spider angiomas present on anterior chest wall HEENT: NC/AT, PERRL, EOMI, icteric sclera, conjunctiva without injection, external ear normal to inspection and nontender, nares patent, moist mucus membranes, subclinical jaundice, dentition intact, white plaque on, neck supple, trachea midline, no LAD, no thyromegaly, no JVD Heart: +S1/S2, regular, no m/r/g Lungs: equal air entry bilaterally, diffuse crackles bilaterally with scattered end expiratory wheezing throughout, no rhonchi Abd: +BS, soft, NT/ND, no masses/organomegaly/ascites Ext: warm, 2+ pulses in UE/LE bilaterally, no clubbing/cyanosis, pitting edema bilateral lower extremities to the Neuro: nonfocal, patient AA&O x 4, speech intact, no facial droop, moving all extremities on command with equal strength 5/5, no asterixis Results & Data Laboratory Results Lab Results 10/29/18 10/29/18 10/29/18 Range/Units 21:53 21:53 21:53 WBC 9.65 (4.8-10.8) K/uL RBC 2.99 L (4.2-5.4) M/uL Hgb 10.2 L (12.0-16.0) g/dL Hct 30.1 L (37-47) % MCV 100.7 H (80-100) fL MCH 34.1 H (25-34) pg MCHC 33.9 (32-36) g/dL RDW Std Deviation 65.4 H (36.4-46.3) fL RDW Coeff of Elysia 18.0 H (11.5-14.5) % Plt Count 65 L (130-400) K/uL MPV 10.9 H (7.4-10.4) fL Immature Gran % (Auto) 1.1 % Neut % (Auto) 82.0 % Lymph % (Auto) 7.7 % [place] % (Auto) 9.1 % Eos % (Auto) 0.0 % Baso % (Auto) 0.1 % Immature Gran # (Auto) 0.11 H (0.00-0.02) K/uL Neut # (Auto) 7.91 H (1.4-6.5) K/uL Lymph # (Auto) 0.74 L (1.2-3.4) K/uL [place] # (Auto) 0.88 H (0.11-0.59) K/uL Eos # (Auto) 0.00 (0-0.5) K/uL Baso # (Auto) 0.01 (0-0.2) K/uL Toxic Vacuolation 1+ Polychromasia 1+ PT 17.8 H (9.0-12.0) Seconds INR 1.8 H (0.9-1.1) APTT 33.4 H (21.0-31.0) Seconds PTT Ratio 1.2 Sodium 131 L (136-145) mmol/L Potassium 3.7 (3.5-5.1) mmol/L Chloride 97 L (98-107) mmol/L Carbon Dioxide 23 (21-32) mmol/L Anion Gap 10.0 (3-11) BUN 13 (7-18) mg/dl Creatinine 1.26 H (0.6-1.2) mg/dl Est Cr Clr Drug Dosing 53.9 ml/min Est GFR ( Amer) 54.4 Est GFR (Non-Af Amer) 46.9 BUN/Creatinine Ratio 10.0 (10-20) Glucose 121 H (70-99) mg/dl Calcium 8.1 L (8.5-10.1) mg/dl Total Bilirubin 6.0 H (0.2-1) mg/dl AST 172 H (15-37) U/L ALT 49 (12-78) U/L Alkaline Phosphatase 103 (45-117) U/L Ammonia (11-32) umol/L Troponin I 0.029 (0-0.045) ng/ml Total Protein 7.0 (6.4-8.2) gm/dl Albumin 2.2 L (3.4-5.0) gm/dl Globulin 4.8 H (2.5-4.0) gm/dl Albumin/Globulin Ratio 0.5 L (0.9-2) Urine Color Urine Appearance (Clear) Urine pH (4.5-7.5) Ur Specific [place] (1.000-1.030) Urine Protein (Negative) Urine Glucose (UA) (Negative) Urine Ketones (Negative) Urine Blood (Negative) Urine Nitrite (Negative) Urine Bilirubin (Negative) Urine Urobilinogen (Negative) Ur Leukocyte Esterase (Negative) Influenza Type A (PCR) (Neg) Influenza Type B (PCR) (Neg) 10/29/18 10/29/18 10/29/18 Range/Units 22:14 23:33 23:52 WBC (4.8-10.8) K/uL RBC (4.2-5.4) M/uL Hgb (12.0-16.0) g/dL Hct (37-47) % MCV (80-100) fL MCH (25-34) pg MCHC (32-36) g/dL RDW Std Deviation (36.4-46.3) fL RDW Coeff of Elysia (11.5-14.5) % Plt Count (130-400) K/uL MPV (7.4-10.4) fL Immature Gran % (Auto) % Neut % (Auto) % Lymph % (Auto) % [place] % (Auto) % Eos % (Auto) % Baso % (Auto) % Immature Gran # (Auto) (0.00-0.02) K/uL Neut # (Auto) (1.4-6.5) K/uL Lymph # (Auto) (1.2-3.4) K/uL [place] # (Auto) (0.11-0.59) K/uL Eos # (Auto) (0-0.5) K/uL Baso # (Auto) (0-0.2) K/uL Toxic Vacuolation Polychromasia PT (9.0-12.0) Seconds INR (0.9-1.1) APTT (21.0-31.0) Seconds PTT Ratio Sodium (136-145) mmol/L Potassium (3.5-5.1) mmol/L Chloride (98-107) mmol/L Carbon Dioxide (21-32) mmol/L Anion Gap (3-11) BUN (7-18) mg/dl Creatinine (0.6-1.2) mg/dl Est Cr Clr Drug Dosing ml/min Est GFR ( Amer) Est GFR (Non-Af Amer) BUN/Creatinine Ratio (10-20) Glucose (70-99) mg/dl Calcium (8.5-10.1) mg/dl Total Bilirubin (0.2-1) mg/dl AST (15-37) U/L ALT (12-78) U/L Alkaline Phosphatase (45-117) U/L Ammonia 56.0 H (11-32) umol/L Troponin I (0-0.045) ng/ml Total Protein (6.4-8.2) gm/dl Albumin (3.4-5.0) gm/dl Globulin (2.5-4.0) gm/dl Albumin/Globulin Ratio (0.9-2) Urine Color Yellow Urine Appearance Clear (Clear) Urine pH 6.5 (4.5-7.5) Ur Specific [place] <= 1.005 (1.000-1.030) Urine Protein Negative (Negative) Urine Glucose (UA) Negative (Negative) Urine Ketones Negative (Negative) Urine Blood Negative (Negative) Urine Nitrite Negative (Negative) Urine Bilirubin Negative (Negative) Urine Urobilinogen Positive H (Negative) Ur Leukocyte Esterase Negative (Negative) Influenza Type A (PCR) Pos for Influ A A* (Neg) Influenza Type B (PCR) Neg for Influ B (Neg) Diagnostic Findings SINGLE VIEW CHEST CLINICAL HISTORY: Dyspnea. FINDINGS: An AP, portable, upright chest radiograph is compared to study dated 04/23/2018. The examination is degraded by portable technique and patient rotation. The heart is title normal for projection. There is pulmonary vascular congestion. Bibasilar airspace opacities are noted. No large pleural effusion is identified. No pneumothorax is seen. The skeletal structures are osteopenic. The bony thorax is grossly intact. IMPRESSION: 1. Findings are consistent with congestive failure. 2. Bibasilar airspace opacities likely represent atelectasis. Clinical correlation will be required. 3. No large pleural effusion is seen. Electronically signed by: Vinh Johnson M.D. 10/29/2018 10:17 PM Dictated: 10/29/182214 Transcribed: 10/29/182214 Stat report of CTA chest: Splenomegaly, cirrhotic liver, moderate ascites. No PE. Multifocal groundglass opacities can represent areas of atypical infection, hemorrhage, inflammation, or edema ECG Additional Comments: Study shows normal sinus rhythm at 96 bpm, normal axis and intervals, no acute ischemic changes, unchanged from prior study from Code Status & VTE Plan Code Status Full code VTE Prophylaxis Plan VTE Prophylaxis will be ordered: Yes Critical Care Time Critical Care Time: No (1) Cirrhosis Ascites presence: without ascites Hepatic cirrhosis type: unspecified hepatic cirrhosis Qualified Code(s): K74.60 - Unspecified cirrhosis of liver (2) Community acquired pneumonia Laterality: unspecified laterality Qualified Code(s): J18.9 - Pneumonia, unspecified organism
[2018-10-30] MEDS ORDERED: ONDANSETRON INJ 2 MG/ML 2 ML VIAL IV PRN (02:53)
[2018-10-30] MEDS ORDERED: ALBUT/IPRATROP 3MG/0.5MG NEB 3 ML VIAL NEB PRN ×2 (02:53→15:58)
[2018-10-30] MEDS ORDERED: ALBUTEROL 0.5% NEB SOLN 2.5 MG/0.5 ML VIAL NEB PRN (02:53)
[2018-10-30 04:12] LABS: Albumin Level 1.9 gm/dl (3.4-5.0); Bilirubin,Total 5.8 mg/dl (0.2-1); Magnesium 1.8 mg/dl (1.8-2.4); Phosphorus 2.4 mg/dl (2.5-4.9); Total Protein 6.3 gm/dl (6.4-8.2)
[2018-10-30] MEDS ORDERED: ALBUMIN 25% 50 ML IV ONE (04:15)
[2018-10-30] MEDS: ACETAMINOPHEN 325 MG TAB PO PRN ×2 (04:17→08:35)
--- NOTE | 2018-10-30 06:42 | CT Scan Report ---
CT ANGIOGRAM OF THE CHEST CLINICAL HISTORY: Atypical chest pain and shortness of breath. Suspected pulmonary embolism. COMPARISON STUDY: Chest x-ray dated 10/29/2018 TECHNIQUE: Following the IV administration of 110 mL of [id number]-[id number], CT angiogram of the thorax was p erformed from the thoracic inlet to the lung bases utilizing the pulmonary embolus protocol. Images a re reviewed in the axial, sagittal, and coronal planes. IV contrast was administered without complica tion. MIP imaging was performed. A dose lowering technique was utilized adhering to the principles o f ALARA. CT DOSE: 493.34 mGy.cm FINDINGS: Visualized portions of the upper abdomen reveal a cirrhotic morphology of the liver. There is splenom egaly. There is ascites. There is a 1 cm right lobe thyroid nodule. No pathologically enlarged axillary mediastinal or hilar lymph nodes were visualized. There was no evidence of thoracic aortic dilatation. There were no pulmonary artery filling defects to indicate acute pulmonary embolism. No pleural effusions are visualized. There are bilateral groundglass pulmonary opacities with an upper lung zone predominance. Diagnostic considerations include pulmonary edema versus an infectious/inflammatory process. Clinical and radiog raphic follow-up is recommended. IMPRESSION: 1. No evidence of acute pulmonary embolism 2. Multifocal groundglass opacities, likely representing pulmonary edema versus an infectious/inflamm atory process. Clinical and imaging follow-up is recommended 3. Cirrhotic morphology of the liver. Splenomegaly. Ascites. Electronically signed by: Sal Connor M.D. 10/30/2018 6:41 AM
[2018-10-30] MEDS: DOXYCYCLINE HYCLATE 100 MG in DEXTROSE 5% 100 ML IV SCH ×2 (08:36→21:53)
[2018-10-30] MEDS: OSELTAMIVIR PHOSPHATE SUSP 30 MG/5 ML UDP PO SCH ×2 (08:36→20:47)
[2018-10-30] MEDS: FUROSEMIDE 20 MG TAB PO SCH (08:37)
[2018-10-30] MEDS: guaiFENesin 600 MG TABCR PO SCH ×2 (08:37→20:50)
[2018-10-30] MEDS: RIFAXIMIN 550 MG TABLET PO SCH ×2 (08:38→20:49)
[2018-10-30] MEDS: SPIRONOLACTONE 25 MG TAB PO SCH ×3 (08:38→20:49)
[2018-10-30] MEDS: NYSTATIN SUSP 500,000 U/5 ML UDC PO SCH ×4 (08:41→20:48)
[2018-10-30] MEDS ORDERED: PANTOprazole 40 MG TAB PO SCH (09:00)
[2018-10-30] MEDS: ALBUT/IPRATROP 3MG/0.5MG NEB 3 ML VIAL NEB SCH ×2 (16:08→19:18)
[2018-10-30] MEDS: predniSONE 20 MG TAB PO SCH (17:17)
[2018-10-30] MEDS: PANTOprazole 40 MG TAB PO SCH (20:48)
--- NOTE | 2018-10-30 21:04 | Hospitalist Progress Note ---
Date of Service October 30, 2018 Assessment & Plan (1) Influenza A: tamiflu x 5 days uncertain of first day of illness (may have actually been last weekend) -- thus, tamiflu may not provide a lot of benefit continue in light of immunocompromised state from cirrhosis (2) Community acquired pneumonia: atypical pneumonia vs viral (flu) agree w/ doxy (3) Cirrhosis: Patient with history of cirrhosis thought to be secondary to fatty liver disease. She follows with hepatology at [facility]. She had an EGD performed in 2016 which showed no varices. She had a colonoscopy performed in 2012. Liver parameters are slightly worse than prior to include a bilirubin of 6, INR 1.8, albumin of 2.2. Presently child class C, MELD score of 26. -Continue home Lasix, rifaximin, spironolactone at home dose -Repeat LFTs and coags in the morning (4) Ovarian cancer: Patient diagnosed with ovarian cancer in 2010. She comments that it had low malignant potential. Underwent surgical excision, total abdominal hysterectomy in 2010. (5) Acute bronchitis: start prednisone 60mg daily add duonebs q6h mucinex incentive suspect she has underlying COPD from years of smoking Subjective feels tired long-standing smoking history -- 1/2-1ppd since age 20 -- quit 1 week ago gets "bronchitis" at least 2 times/year still coughing/wheezing Physical Exam Vital Signs (Past 24 Hours): Last Vital Signs Temp 36.7 C 10/30/18 19:44 Pulse 73 10/30/18 19:44 Resp 20 10/30/18 19:44 BP 108/67 10/30/18 19:44 Pulse Ox 99 10/30/18 19:44 Constitutional: + ill appearing and + obese; no acute distress Eyes: + anicteric sclerae ENMT: external ear and nose normal, oropharynx normal Respiratory: no respiratory distress Auscultation: + rhonchi and + wheezes Cardiovascular: Rate/Rhythm: regular rate and regular rhythm Heart Sounds: normal S1 and normal S2; no murmur Vessels: posterior tibial pulses present and dorsalis pedis pulses present; no JVD Extremities: + edema (1-2+ b/l) Gastrointestinal (Abdomen): Inspection/Auscultation: + abdomen distended (with ascites) Percussion/Palpation: + splenomegaly; abdomen nontender and no hepatomegaly Skin: clubbing Psychiatric: A+Ox3, euthymic affect Results & Data Laboratory Results Laboratory Results - last 24 hr 10/29/18 10/29/18 10/29/18 21:53 21:53 21:53 WBC 9.65 RBC 2.99 L Hgb 10.2 L Hct 30.1 L MCV 100.7 H MCH 34.1 H MCHC 33.9 RDW Std Deviation 65.4 H RDW Coeff of Elysia 18.0 H Plt Count 65 L MPV 10.9 H Immature Gran % (Auto) 1.1 Neut % (Auto) 82.0 Lymph % (Auto) 7.7 [place] % (Auto) 9.1 Eos % (Auto) 0.0 Baso % (Auto) 0.1 Immature Gran # (Auto) 0.11 H Neut # (Auto) 7.91 H Lymph # (Auto) 0.74 L [place] # (Auto) 0.88 H Eos # (Auto) 0.00 Baso # (Auto) 0.01 Toxic Vacuolation 1+ Polychromasia 1+ PT 17.8 H INR 1.8 H APTT 33.4 H PTT Ratio 1.2 Sodium 131 L Potassium 3.7 Chloride 97 L Carbon Dioxide 23 Anion Gap 10.0 BUN 13 Creatinine 1.26 H Est Cr Clr Drug Dosing 53.9 Est GFR ( Amer) 54.4 Est GFR (Non-Af Amer) 46.9 BUN/Creatinine Ratio 10.0 Glucose 121 H Calcium 8.1 L Phosphorus Magnesium Total Bilirubin 6.0 H Direct Bilirubin AST 172 H ALT 49 Alkaline Phosphatase 103 Ammonia Troponin I 0.029 NT-Pro-B Natriuret Pep Total Protein 7.0 Albumin 2.2 L Globulin 4.8 H Albumin/Globulin Ratio 0.5 L Procalcitonin Urine Color Urine Appearance Urine pH Ur Specific [place] Urine Protein Urine Glucose (UA) Urine Ketones Urine Blood Urine Nitrite Urine Bilirubin Urine Urobilinogen Ur Leukocyte Esterase Influenza Type A (PCR) Influenza Type B (PCR) 10/29/18 10/29/18 10/29/18 22:14 23:33 23:52 WBC RBC Hgb Hct MCV MCH MCHC RDW Std Deviation RDW Coeff of Elysia Plt Count MPV Immature Gran % (Auto) Neut % (Auto) Lymph % (Auto) [place] % (Auto) Eos % (Auto) Baso % (Auto) Immature Gran # (Auto) Neut # (Auto) Lymph # (Auto) [place] # (Auto) Eos # (Auto) Baso # (Auto) Toxic Vacuolation Polychromasia PT INR APTT PTT Ratio Sodium Potassium Chloride Carbon Dioxide Anion Gap BUN Creatinine Est Cr Clr Drug Dosing Est GFR ( Amer) Est GFR (Non-Af Amer) BUN/Creatinine Ratio Glucose Calcium Phosphorus Magnesium Total Bilirubin Direct Bilirubin AST ALT Alkaline Phosphatase Ammonia 56.0 H Troponin I NT-Pro-B Natriuret Pep Total Protein Albumin Globulin Albumin/Globulin Ratio Procalcitonin Urine Color Yellow Urine Appearance Clear Urine pH 6.5 Ur Specific [place] <= 1.005 Urine Protein Negative Urine Glucose (UA) Negative Urine Ketones Negative Urine Blood Negative Urine Nitrite Negative Urine Bilirubin Negative Urine Urobilinogen Positive H Ur Leukocyte Esterase Negative Influenza Type A (PCR) Pos for Influ A A* Influenza Type B (PCR) Neg for Influ B 10/30/18 10/30/18 03:17 03:17 WBC RBC Hgb Hct MCV MCH MCHC RDW Std Deviation RDW Coeff of Elysia Plt Count MPV Immature Gran % (Auto) Neut % (Auto) Lymph % (Auto) [place] % (Auto) Eos % (Auto) Baso % (Auto) Immature Gran # (Auto) Neut # (Auto) Lymph # (Auto) [place] # (Auto) Eos # (Auto) Baso # (Auto) Toxic Vacuolation Polychromasia PT INR APTT PTT Ratio Sodium Potassium Chloride Carbon Dioxide Anion Gap BUN Creatinine Est Cr Clr Drug Dosing Est GFR ( Amer) Est GFR (Non-Af Amer) BUN/Creatinine Ratio Glucose Calcium Phosphorus 2.4 L Magnesium 1.8 Total Bilirubin 5.8 H Direct Bilirubin 4.0 H AST 143 H ALT 42 Alkaline Phosphatase 91 Ammonia Troponin I NT-Pro-B Natriuret Pep 121 Total Protein 6.3 L Albumin 1.9 L Globulin Albumin/Globulin Ratio Procalcitonin 0.19 Urine Color Urine Appearance Urine pH Ur Specific [place] Urine Protein Urine Glucose (UA) Urine Ketones Urine Blood Urine Nitrite Urine Bilirubin Urine Urobilinogen Ur Leukocyte Esterase Influenza Type A (PCR) Influenza Type B (PCR) (1) Ovarian cancer Laterality: unspecified laterality Qualified Code(s): C56.9 - Malignant neoplasm of unspecified ovary (2) Cirrhosis Ascites presence: without ascites Hepatic cirrhosis type: unspecified hepatic cirrhosis Qualified Code(s): K74.60 - Unspecified cirrhosis of liver (3) Community acquired pneumonia Laterality: unspecified laterality Qualified Code(s): J18.9 - Pneumonia, unspecified organism (4) Acute bronchitis Bronchitis organism: unspecified organism Qualified Code(s): J20.9 - Acute bronchitis, unspecified
[2018-10-31] MEDS: ALBUT/IPRATROP 3MG/0.5MG NEB 3 ML VIAL NEB SCH ×4 (07:11→19:24)
[2018-10-31 07:36] LABS: Basophils # (auto) 0.01 K/uL (0-0.2); Basophils % (auto) 0.2 %; Hematocrit (blood only) 24.8 % (37-47); Hemoglobin 8.6 g/dL (12.0-16.0); Immature Granulocytes # (auto) 0.04 K/uL (0.00-0.02); Immature Granulocytes % (auto) 0.8 %; Lymphocytes % (auto) 11.3 %; Mean Corpuscular Hgb Conc 34.7 g/dL (32-36); Monocytes # (auto) 0.46 K/uL (0.11-0.59); Monocytes % (auto) 8.7 %; Neutrophils # (auto) 4.18 K/uL (1.4-6.5); Platelet Count 48 K/uL (130-400); RDW Coefficient of Variation 17.4 % (11.5-14.5); RDW Standard Deviation 62.5 fL (36.4-46.3); Red Blood Count 2.53 M/uL (4.2-5.4); White Blood Count 5.29 K/uL (4.8-10.8)
[2018-10-31 07:42] LABS: INR 1.8 (0.9-1.1)
[2018-10-31 07:48] LABS: Albumin Level 1.8 gm/dl (3.4-5.0); BUN Creatinine Ratio 13.9 (10-20); Bilirubin Direct 3.5 mg/dl (0-0.2); Calcium 7.9 mg/dl (8.5-10.1); Est GFR (African American) 64.8; Est GFR (Non-African American) 55.9; Potassium 3.8 mmol/L (3.5-5.1)
[2018-10-31 07:51] LABS: Bilirubin,Total 4.8 mg/dl (0.2-1); Total Protein 5.9 gm/dl (6.4-8.2)
[2018-10-31] MEDS: PANTOprazole 40 MG TAB PO SCH ×2 (08:33→20:24)
[2018-10-31] MEDS: DOXYCYCLINE HYCLATE 100 MG CAP PO SCH ×2 (08:34→20:24)
[2018-10-31] MEDS: guaiFENesin 600 MG TABCR PO SCH ×2 (08:34→20:25)
[2018-10-31] MEDS: SPIRONOLACTONE 25 MG TAB PO SCH ×3 (08:34→20:25)
[2018-10-31] MEDS: predniSONE 20 MG TAB PO SCH (08:34)
[2018-10-31] MEDS: RIFAXIMIN 550 MG TABLET PO SCH ×2 (08:34→20:25)
[2018-10-31] MEDS: FUROSEMIDE 20 MG TAB PO SCH (08:34)
[2018-10-31] MEDS: NYSTATIN SUSP 500,000 U/5 ML UDC PO SCH ×4 (08:34→20:24)
[2018-10-31] MEDS: OSELTAMIVIR PHOSPHATE SUSP 30 MG/5 ML UDP PO SCH ×2 (08:38→20:23)
[2018-10-31] MEDS: DICLOFENAC SOD 1% GEL 100 GM TUBE EXT SCH ×2 (18:34→23:28)
[2018-10-31] MEDS: FLUTICASONE/SALMETEROL 250/50 (ADVAIR) 14 PUFF/1 INHALER INH SCH (20:24)
[2018-10-31] MEDS: BENZONATATE 100 MG CAPSULE PO SCH (21:07)
--- NOTE | 2018-10-31 22:02 | Hospitalist Progress Note ---
Date of Service October 31, 2018 Assessment & Plan (1) Influenza A: tamiflu x 5 days day #2 with associated acute bronchitis/possible pneumonia uncertain of first day of illness (may have actually been last weekend) -- thus, tamiflu may not provide a lot of benefit continue in light of immunocompromised state from cirrhosis (2) Community acquired pneumonia: atypical pneumonia vs viral (flu) cont doxy day #2 (3) Cirrhosis: Patient with history of cirrhosis thought to be secondary to fatty liver disease. She follows with hepatology at [place]. She had an EGD performed in 2016 which showed no varices. She had a colonoscopy performed in 2012. Presently child class C, MELD score of 26. -Continue home Lasix, rifaximin, spironolactone at home dose -Repeat coags in the morning to ensure stability -LFTs today slightly better than previous (4) Ovarian cancer: Patient diagnosed with ovarian cancer in 2010. She comments that it had low malignant potential. Underwent surgical excision, total abdominal hysterectomy in 2010. (5) Acute bronchitis: cont prednisone 60mg daily cont duonebs q6h, mucinex cont incentive spirometry; oob to chair suspect she has underlying COPD from years of smoking (6) Chronic airway obstruction, not elsewhere classified: suspect COPD from long-standing smoking history. start advair for daily controller agent. (7) Hyponatremia: 2nd to cirrhosis. chronic, stable. bmp am. (8) Anemia: 2nd to cirrhosis/liver disease. H/H acceptable. 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 stable. (10) Candidiasis of mouth and esophagus: nystatin solution qid improving (11) Tobacco use disorder: recently quit encouraged ongoing abstinence declines nicoderm (12) Chest wall pain: reproducible on exam 2nd to coughing voltaren gel qid k-pad heating (13) DVT prophylaxis: chemical means contraindicated due to low platelets SCDs ambulate updated at bedside today Subjective c/o weakness/fatigue, cough, pain on chest wall with coughing, lack of appetite, lassitude been in bed most of day no fever Constitutional: + fatigue, + weakness and + anorexia; no chills and no weight gain Respiratory: + cough and + dyspnea; no hemoptysis and no sputum production Cardiovascular: as per Subjective / HPI and + edema (at baseline); no orthopnea and no paroxysmal nocturnal dyspnea Gastrointestinal: no nausea and no vomiting Physical Exam Vital Signs (Past 24 Hours): Last Vital Signs Temp 36.7 C 10/31/18 19:57 Pulse 87 10/31/18 19:57 Resp 20 10/31/18 19:57 BP 124/73 10/31/18 19:57 Pulse Ox 100 10/31/18 19:57 Constitutional: + ill appearing and + obese; no acute distress Eyes: + anicteric sclerae ENMT: Mouth: + oral mucosal abnormality (thrush plaques improved) Respiratory: no respiratory distress Auscultation: + rhonchi and + wheezes Cardiovascular: Rate/Rhythm: regular rate and regular rhythm Heart Sounds: normal S1 and normal S2; no murmur Vessels: posterior tibial pulses present and dorsalis pedis pulses present; no JVD Extremities: + edema (2+ b/l) Chest (Breasts): Additional Comments: reproducible chest wall pain with very light touch c/w musculoskeletal pain Gastrointestinal (Abdomen): Inspection/Auscultation: + abdomen distended (with ascites) Percussion/Palpation: + splenomegaly; abdomen nontender and no hepatomegaly Skin: clubbing fingernails Psychiatric: A+Ox3, euthymic affect Results & Data Laboratory Results Laboratory Results - last 24 hr 10/31/18 10/31/18 10/31/18 07:02 07:02 07:02 WBC 5.29 RBC 2.53 L Hgb 8.6 L Hct 24.8 L MCV 98.0 MCH 34.0 MCHC 34.7 RDW Std Deviation 62.5 H RDW Coeff of Elysia 17.4 H Plt Count 48 L MPV 12.0 H Immature Gran % (Auto) 0.8 Neut % (Auto) 79.0 Lymph % (Auto) 11.3 [place] % (Auto) 8.7 Eos % (Auto) 0.0 Baso % (Auto) 0.2 Immature Gran # (Auto) 0.04 H Neut # (Auto) 4.18 Lymph # (Auto) 0.60 L [place] # (Auto) 0.46 Eos # (Auto) 0.00 Baso # (Auto) 0.01 PT 18.0 H INR 1.8 H Sodium 130 L Potassium 3.8 Chloride 98 Carbon Dioxide 25 Anion Gap 7.0 BUN 15 Creatinine 1.09 Est Cr Clr Drug Dosing 62.0 Est GFR ( Amer) 64.8 Est GFR (Non-Af Amer) 55.9 BUN/Creatinine Ratio 13.9 Glucose 100 H Calcium 7.9 L Total Bilirubin 4.8 H Direct Bilirubin 3.5 H AST 100 H ALT 37 Alkaline Phosphatase 94 Total Protein 5.9 L Albumin 1.8 L (1) Ovarian cancer Laterality: unspecified laterality Qualified Code(s): C56.9 - Malignant neoplasm of unspecified ovary (2) Cirrhosis Ascites presence: without ascites Hepatic cirrhosis type: unspecified hepatic cirrhosis Qualified Code(s): K74.60 - Unspecified cirrhosis of liver (3) Community acquired pneumonia Laterality: unspecified laterality Qualified Code(s): J18.9 - Pneumonia, unspecified organism (4) Acute bronchitis Bronchitis organism: unspecified organism Qualified Code(s): J20.9 - Acute bronchitis, unspecified (5) Anemia Anemia type: unspecified type Qualified Code(s): D64.9 - Anemia, unspecified
[2018-11-01] MEDS: DICLOFENAC SOD 1% GEL 100 GM TUBE EXT SCH ×3 (04:48→17:19)
[2018-11-01 06:28] LABS: Hemoglobin 8.6 g/dL (12.0-16.0); Mean Corpuscular Hgb Conc 34.4 g/dL (32-36); Mean Corpuscular Volume 99.6 fL (80-100); RDW Coefficient of Variation 17.4 % (11.5-14.5); RDW Standard Deviation 62.5 fL (36.4-46.3); Red Blood Count 2.51 M/uL (4.2-5.4); White Blood Count 7.91 K/uL (4.8-10.8)
[2018-11-01 06:29] LABS: Mean Platelet Volume 11.4 fL (7.4-10.4); Platelet Count 51 K/uL (130-400)
[2018-11-01 06:37] LABS: INR 1.7 (0.9-1.1)
[2018-11-01 06:58] LABS: BUN Creatinine Ratio 12.6 (10-20); Creatinine Clr Calc Pharmacy 42.8 ml/min; Est GFR (African American) 41.4; Est GFR (Non-African American) 35.7; Potassium 3.4 mmol/L (3.5-5.1)
[2018-11-01] MEDS: ALBUT/IPRATROP 3MG/0.5MG NEB 3 ML VIAL NEB SCH ×4 (07:29→19:13)
[2018-11-01] MEDS: OSELTAMIVIR PHOSPHATE SUSP 30 MG/5 ML UDP PO SCH ×2 (07:37→21:00)
[2018-11-01] MEDS: FLUTICASONE/SALMETEROL 250/50 (ADVAIR) 14 PUFF/1 INHALER INH SCH ×2 (07:37→20:56)
[2018-11-01] MEDS: guaiFENesin 600 MG TABCR PO SCH ×2 (07:38→20:57)
[2018-11-01] MEDS: FUROSEMIDE 20 MG TAB PO SCH (07:38)
[2018-11-01] MEDS: predniSONE 20 MG TAB PO SCH (07:38)
[2018-11-01] MEDS: PANTOprazole 40 MG TAB PO SCH ×2 (07:38→20:57)
[2018-11-01] MEDS: DOXYCYCLINE HYCLATE 100 MG CAP PO SCH ×2 (07:39→20:57)
[2018-11-01] MEDS: RIFAXIMIN 550 MG TABLET PO SCH ×2 (07:39→20:56)
[2018-11-01] MEDS: SPIRONOLACTONE 25 MG TAB PO SCH (07:39)
[2018-11-01] MEDS: BENZONATATE 100 MG CAPSULE PO SCH ×3 (07:40→20:57)
[2018-11-01] MEDS: NYSTATIN SUSP 500,000 U/5 ML UDC PO SCH ×4 (07:43→20:56)
[2018-11-01] MEDS ORDERED: ALBUMIN 25% 50 ML IV ONE ×3 (07:55→18:31)
[2018-11-01] MEDS ORDERED: POTASSIUM CHLORIDE 10 MEQ TABCR PO STA (13:45)
--- NOTE | 2018-11-01 14:49 | XRay Report ---
XR chest 2V routine CLINICAL HISTORY: fluA infection, crackles ,eval edema/pneumonia COMPARISON STUDY: 10/29/2018 FINDINGS: Mildly progressive perihilar infiltrative changes suggesting developing pulmonary edema. Ca rdiac margins are slightly indistinct. Diaphragms are smooth. IMPRESSION: Developing pulmonary edema. The above report was generated using voice recognition software. It may contain grammatical, syntax or spelling errors. Electronically signed by: Jamel Taylor M.D. 11/01/2018 2:48 PM
[2018-11-01 18:57] LABS: BUN Creatinine Ratio 10.2 (10-20); Calcium 8.2 mg/dl (8.5-10.1); Creatinine Clr Calc Pharmacy 26.6 ml/min; Est GFR (African American) 23.2; Potassium 3.4 mmol/L (3.5-5.1)
[2018-11-01] MEDS: MIDODRINE HCL 2.5 MG TAB PO SCH (19:56)
--- NOTE | 2018-11-01 20:10 | Hospitalist Progress Note ---
Date of Service November 01, 2018 Assessment & Plan (1) Acute kidney failure: Rapid rise in creatinine over the last 36 hours, beginning at 1 then rising to 1.5 and now 2.5 this evening. FeNa nearly 0. Urine Na 6. With her known advanced cirrhosis and the low BPs overnight along with urine studies this is concerning for hepatorenal syndrome type 1. I cannot exclude ATN. plan - I spoke with Dr. Ragsdale and we will continue albumin infusions. I gave her a dose of such this AM as well. Give 1gm/kg (25 gm of 25% albumin q6h) daily. Start midodrine 5mg TID. Titrate if necessary. Octreotide 100mcg SC q8h. Titrate to 200mcg if necessary. HOLD aldactone. HOLD lasix. Checked cortisol level - 18. Place moore. Consider renal u/s, r/o obstruction, but highly doubt that this is the cause. I had several discussions with the patient and her regarding my concerns of this new-onset ARF. If this is indeed Hepatorenal syndrome type 1 this portends a very poor prognosis. If Hepatorenal syndrome is present - cause? possibly the stress of the recent flu infection. NO symptoms/signs of SBP but could consider a diagnostic paracentesis. Formal nephrology and GI consults requested. Present on Admission?: No (2) Influenza A: tamiflu x 5 days day #3 this has improved since admission Has associated acute bronchitis/possible pneumonia. Doxycycline for coverage of possible pneumonia. (3) Community acquired pneumonia: atypical pneumonia vs viral (flu) cont doxy day #3 treat the influenza (4) Cirrhosis: Patient with cirrhosis thought to be secondary to fatty liver disease/JAVIER. She follows with hepatology at [facility]. She had an EGD performed in 2017 which showed no varices. She had a colonoscopy performed in 2013. Present MELD score of 31. I reviewed the outpatient [employer] record. There is a note from Dr. Ayoub - [facility] - from 06/2018. Transplant was heavily discussed at that visit, but given the concern of active ovarian cancer, there was little hope she would be a transplant candidate. The patient and her confirm she has been told since that time that she is NOT a liver transplant candidate. Her oncologist has also told her this. No indication to transfer to [facility] at this time. She also told me late in the day today that she "doesn't want to go to [facility]" for any reason. Present on Admission?: Yes (5) Ovarian cancer: Patient diagnosed with ovarian cancer in 2010. She comments that it had low malignant potential. Underwent surgical excision (total abdominal hysterectomy/BSO) in 2010. CT abd/pelvis from 09/2018 suggests metastatic disease. CA-125 has been high as well (345 on 10/19/18). Present on Admission?: Yes (6) Acute bronchitis: 2nd to the flu virus. cont prednisone 40mg daily cont duonebs q6h, mucinex cont incentive spirometry cont advair cont doxycycline for possible secondary pneumonia (7) Chronic airway obstruction, not elsewhere classified: suspect COPD from long-standing smoking history. see "acute bronchitis" above (8) Hyponatremia: 2nd to cirrhosis and ARF. WORSE today. BMP am. holding diuretics. (9) Anemia: 2nd to cirrhosis/liver disease. H/H acceptable. CBC am. 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 stable. CBC am. (11) Candidiasis of mouth and esophagus: nystatin solution qid improving (12) Tobacco use disorder: recently quit declines nicoderm (13) Chest wall pain: reproducible on exam 2nd to coughing k-pad has helped stop voltaren gel due to acute renal failure (14) DVT prophylaxis: chemical means contraindicated due to low platelets SCDs ambulating updated at bedside today multiple times today critical care time - 75 minutes in light of rapidly progressive ARF, speaking w/ multiple consultants, etc Subjective Saw patient multiple times today. During am rounds she stated she "felt a little better." Less fatigue, better appetite, and back/chest wall pain was improved with use of heat via K-pad. Still with cough/wheeze/congestion. BPs overnight, however, were mildly low. I had several other visits to the patient's room to discuss her acute kidney failure. She confirmed SEVERAL TIMES that she has been told by [facility] and other providers that she is NOT a liver transplant candidate due to active ovarian cancer. Her CA-125 level has risen several times over the last year. She follows with an oncologist in [place]. She is not being actively treated for the cancer. That oncologist has told her and her that the cancer "is everywhere." A CT of the abd/pelvis from September done at [facility] appears to show mets. I don't have other imaging besides this. Constitutional: no fever and no chills Respiratory: + cough, + dyspnea on exertion (mild) and + wheezing; no hemoptysis and no sputum production Cardiovascular: + chest pain (chest wall pain) Gastrointestinal: no abdominal pain, no nausea and no vomiting Physical Exam Vital Signs (Past 24 Hours): Last Vital Signs Temp 36.6 C 11/01/18 19:53 Pulse 96 H 11/01/18 19:53 Resp 20 11/01/18 19:53 BP 89/48 L 11/01/18 19:53 Pulse Ox 91 11/01/18 19:53 Constitutional: + obese; no acute distress Eyes: + scleral abnormality (icterus) ENMT: external ear and nose normal, oropharynx normal Mouth: + oral mucosal abnormality (thrush plaques improved) Respiratory: no respiratory distress Auscultation: + rales (minimal bases), + rhonchi and + wheezes Cardiovascular: Rate/Rhythm: regular rate and regular rhythm Heart Sounds: normal S1 and normal S2; no murmur Vessels: posterior tibial pulses present and dorsalis pedis pulses present; no JVD Extremities: + edema (2+ b/l) Gastrointestinal (Abdomen): Inspection/Auscultation: + abdomen distended (with ascites) Percussion/Palpation: + splenomegaly; abdomen nontender and no hepatomegaly Neurologic: no asterixis Psychiatric: A+Ox3, euthymic affect Results & Data Laboratory Results Laboratory Results - last 24 hr 11/01/18 11/01/18 11/01/18 06:01 06:01 06:01 WBC 7.91 RBC 2.51 L Hgb 8.6 L Hct 25.0 L MCV 99.6 MCH 34.3 H MCHC 34.4 RDW Std Deviation 62.5 H RDW Coeff of Elysia 17.4 H Plt Count 51 L MPV 11.4 H PT 17.0 H INR 1.7 H Sodium 130 L Potassium 3.4 L Chloride 97 L Carbon Dioxide 25 Anion Gap 8.0 BUN 20 H Creatinine 1.58 H D Est Cr Clr Drug Dosing 42.8 Est GFR ( Amer) 41.4 Est GFR (Non-Af Amer) 35.7 BUN/Creatinine Ratio 12.6 Glucose 100 H Osmolality Calcium 8.0 L TSH Random Cortisol Urine Osmolality Ur Random Creatinine Ur Random Sodium 11/01/18 11/01/18 11/01/18 17:58 17:58 17:58 WBC RBC Hgb Hct MCV MCH MCHC RDW Std Deviation RDW Coeff of Elysia Plt Count MPV PT INR Sodium 127 L Potassium 3.4 L Chloride 96 L Carbon Dioxide 21 Anion Gap 10.0 BUN 26 H Creatinine 2.55 H D Est Cr Clr Drug Dosing 26.6 Est GFR ( Amer) 23.2 Est GFR (Non-Af Amer) 20.0 BUN/Creatinine Ratio 10.2 Glucose 174 H Osmolality 280 Calcium 8.2 L TSH 0.552 Random Cortisol 18.69 Urine Osmolality Ur Random Creatinine Ur Random Sodium 11/01/18 11/01/18 18:08 18:08 WBC RBC Hgb Hct MCV MCH MCHC RDW Std Deviation RDW Coeff of Elysia Plt Count MPV PT INR Sodium Potassium Chloride Carbon Dioxide Anion Gap BUN Creatinine Est Cr Clr Drug Dosing Est GFR ( Amer) Est GFR (Non-Af Amer) BUN/Creatinine Ratio Glucose Osmolality Calcium TSH Random Cortisol Urine Osmolality 288 L Ur Random Creatinine 280.0 Ur Random Sodium 6 (1) Community acquired pneumonia Laterality: unspecified laterality Qualified Code(s): J18.9 - Pneumonia, unspecified organism (2) Cirrhosis Ascites presence: without ascites Hepatic cirrhosis type: unspecified hepatic cirrhosis Qualified Code(s): K74.60 - Unspecified cirrhosis of liver (3) Ovarian cancer Laterality: unspecified laterality Qualified Code(s): C56.9 - Malignant neoplasm of unspecified ovary (4) Acute bronchitis Bronchitis organism: unspecified organism Qualified Code(s): J20.9 - Acute bronchitis, unspecified (5) Anemia Anemia type: unspecified type Qualified Code(s): D64.9 - Anemia, unspecified (6) Acute kidney failure Acute renal failure type: unspecified Qualified Code(s): N17.9 - Acute kidney failure, unspecified
[2018-11-01] MEDS: OCTREOTIDE ACETATE 100 MCG/ML VIAL SQ SCH (20:23)
[2018-11-01 22:55] LABS: Appearance Urine Turbid (Clear); Bacteria Urine Automated Negative (Negative); Blood Urine 3+ (Negative); Color Urine Dark Yellow; Epithelial Cell Urine Auto >30 /lpf (0-5); Glucose Urine UA Negative (Negative); Ketones Urine Trace (Negative); Leukocyte Esterase Urine Negative (Negative); Nitrite Urine Positive (Negative); Protein Urine 2+ (Negative); Specific Gravity Urine 1.023 (1.000-1.030); Urobilinogen Urine Negative (Negative)
[2018-11-01 23:02] LABS: Bilirubin Urine 1+ (Negative)
[2018-11-01 23:12] LABS: Cast Urine Automated >30 /lpf (0-5); RBC Urine Automated >30 /hpf (0-4)
[2018-11-01 23:13] LABS: Granular Casts Urine >30 /lpf (0); Renal Epithelial Cells Urine 20-30 /lpf (0-5)
[2018-11-02] MEDS: ALBUMIN 25% 50 ML IV SCH ×8 (02:07→21:13)
[2018-11-02] MEDS: OCTREOTIDE ACETATE 100 MCG/ML VIAL SQ SCH ×3 (04:52→20:31)
[2018-11-02 07:07] LABS: Hematocrit (blood only) 22.5 % (37-47); Hemoglobin 7.7 g/dL (12.0-16.0); Mean Corpuscular Hgb Conc 34.2 g/dL (32-36); Mean Corpuscular Volume 99.1 fL (80-100); RDW Coefficient of Variation 17.7 % (11.5-14.5); RDW Standard Deviation 64.1 fL (36.4-46.3); Red Blood Count 2.27 M/uL (4.2-5.4); White Blood Count 7.93 K/uL (4.8-10.8)
[2018-11-02 07:12] LABS: Mean Platelet Volume 10.8 fL (7.4-10.4); Platelet Count 44 K/uL (130-400)
[2018-11-02] MEDS: ALBUT/IPRATROP 3MG/0.5MG NEB 3 ML VIAL NEB SCH ×4 (07:12→19:52)
[2018-11-02 07:17] LABS: INR 1.8 (0.9-1.1); Prothrombin Time 17.4 Seconds (9.0-12.0)
[2018-11-02 07:29] LABS: Albumin Level 2.5 gm/dl (3.4-5.0); BUN Creatinine Ratio 10.9 (10-20); Basophils # (auto) 0.01 K/uL (0-0.2); Basophils % (auto) 0.1 %; Calcium 8.4 mg/dl (8.5-10.1); Creatinine Clr Calc Pharmacy 23.1 ml/min; Est GFR (African American) 19.5; Est GFR (Non-African American) 16.8; Immature Granulocytes # (auto) 0.07 K/uL (0.00-0.02); Immature Granulocytes % (auto) 0.9 %; Lymphocytes % (auto) 10.1 %; Monocytes # (auto) 0.58 K/uL (0.11-0.59); Monocytes % (auto) 7.3 %; Neutrophils # (auto) 6.47 K/uL (1.4-6.5); Neutrophils % (auto) 81.6 %; Potassium 3.8 mmol/L (3.5-5.1); Tear Drop Cells 1+
[2018-11-02 07:32] LABS: Albumin Globulin Ratio 0.7 (0.9-2); Bilirubin,Total 4.7 mg/dl (0.2-1); Globulin 3.6 gm/dl (2.5-4.0); Total Protein 6.1 gm/dl (6.4-8.2)
[2018-11-02] MEDS: MIDODRINE HCL 2.5 MG TAB PO SCH ×3 (07:33→17:03)
[2018-11-02] MEDS: FLUTICASONE/SALMETEROL 250/50 (ADVAIR) 14 PUFF/1 INHALER INH SCH ×2 (07:34→20:31)
[2018-11-02] MEDS: DOXYCYCLINE HYCLATE 100 MG CAP PO SCH ×2 (07:34→20:33)
[2018-11-02] MEDS: PANTOprazole 40 MG TAB PO SCH ×2 (07:34→20:32)
[2018-11-02] MEDS: NYSTATIN SUSP 500,000 U/5 ML UDC PO SCH ×4 (07:35→20:33)
[2018-11-02] MEDS: guaiFENesin 600 MG TABCR PO SCH ×2 (07:35→20:32)
[2018-11-02] MEDS: predniSONE 20 MG TAB PO SCH (07:35)
[2018-11-02] MEDS: BENZONATATE 100 MG CAPSULE PO SCH ×3 (07:35→20:32)
[2018-11-02] MEDS: RIFAXIMIN 550 MG TABLET PO SCH ×2 (07:35→20:33)
[2018-11-02] MEDS: OSELTAMIVIR PHOSPHATE SUSP 30 MG/5 ML UDP PO SCH (07:37)
--- NOTE | 2018-11-02 09:16 | Gastrointestinal Consultation ---
Date of Consultation November 02, 2018 Assessment & Plan (1) Cirrhosis: (2) Acute kidney failure: (3) Community acquired pneumonia: (4) Influenza A: Patient is a 58 y.o. female with a history of fatty liver associated cirrhosis with noted hepatic decompensation and acute renal failure in the setting of active influenza A infection and CAP. Per criteria, in the absence of another etiology for acute renal failure she may have HRS. Will await further input from nephrology in regard to this possible diagnosis and to determine if any further work up is indicated. She has already been started on appropriate treatment with IV albumin as well as Midodrine and Octreotide. Since starting treatment for the influenza and pneumonia, she has had improvement of her TB to 4.7 from 6.0 on admission. Her MELD today is 33. She does have ascites, but her abdomen is not firm and she has no abdominal pain. Patient is not interested in consideration of paracentesis unless absolutely necessary. Given her renal impairment, however, diuretics have been held. Therefore, if she develops worsening distention or worsening hepatic function, therapeutic and diagnostic paracentesis may need to be considered. For now, recommend ongoing medical management of acute infectious processes as these are the most likely cause of her hepatic decompensation. We will continue to follow her clinical course and make further recommendations as appropriate. If patient would develop further hepatic deterioration, may need to consider transfer to tertiary center. Supervising Physician Co-Signing Physician Notes Agree with DEYANIRA Crane as above Abd: Soft, NT, slightly distended Outpatient records indicated in May 2018, that transplant evaluation was on hold secondary to history of ovarian cancer with elevated CA-125. She was to have repeat level in July 2018, however, I do not see repeat levels. She was to followup at [facility] in 6 months. At that time, Flight Deck Officer did not believe she was a transplant candidate. Continue supportive care Appreciate Renal input in regards to HRS Will follow clinical course and make further recommendations as needed. History of Present Illness Reason for Consultation: ESLD, Questionable HRS Requesting Physician: Dr. Shrestha Attending Physician: Colton Restrepo MD History of Present Illness Patient is a 58 year-old female with a history of cirrhosis which has been attributed to fatty liver disease via liver biopsy following with our office locally and with Dr. Ayoub at [facility] hepatology. At her last office visit in November of 2018, she was noted to have a MELD of 17 and was in consideration of possible liver transplant but this has since been determined that she is not a liver transplant candidate due to ovarian cancer history. She had been having so me mild difficulties with ascites and lower extremity and was recently started on both Aldactone as well as Lasix. She is also on Xifaxan for maintenance of HE. Patient is current with HCC screening. Unfortunately, the patient had developed a sudden onset of cough, shortness of breath and TOVAR as well as chest pain beginning three days prior to arrival. This has prompted the patient to present to the ER for further evaluation as she was concerned she may be having returning pneumonia as she reports she had been diagnosed with this illness several times in the past. She has recently stopped smoking. On arrival, she did have a positive swab for influenza A and CT imaging demonstrating diffuse groundglass opacities suggestive of CAP. She has been started on IV Doxycycline due to a PCN allergy and Tamiflu. During this admission she has been noted to have worsening hepatic and renal function. Her total bilirubin has been improving, however, despite worsening renal impairment. Laboratory testing today was as follows: white blood cell count 7.93, hemoglobin 7.7, hematocrit 22.5, platelets 44, INR 1.8, sodium 127, potassium 3.8, creatinine 2.94, total bilirubin 4.7, AST 66, ALT 38, ALP 90 and albumin 2.5. Patient has been started on Midodrine, Octreotide and IV Albumin. Nephrology has been consulted. Patient with moderate ascites on imaging. She denies any abdominal pain or progressive distention from her baseline. She denies any nausea or vomiting, overt GIB or pruritus. + Jaundice. She continues with significant shortness of breath as well as cough and chest pains. Reports she is using incentive spirometry consistently as directed. Allergies Allergy/AdvReac Type Severity Reaction Status Date / Time levofloxacin Allergy Unknown Rash Verified 10/29/18 21:59 Penicillins Allergy Unknown Rash/Trouble Verified 10/29/18 21:59 Breathing Sulf Drugs Allergy Unknown Rash Uncoded 10/29/18 21:59 Home Medications Home Medications Medication Instructions Recorded Confirmed Type omeprazole 20 mg PO DAILY 04/23/18 10/29/18 History rifaximin 550 mg PO AMHS 04/23/18 10/29/18 History spironolactone 50 mg PO TID 04/23/18 10/29/18 History ergocalciferol (vitamin D2) 50,000 unit PO WK 10/11/18 10/29/18 History [Vitamin D2] furosemide [Lasix] 20 mg PO DAILY 10/11/18 10/29/18 History Patient History Medical History Cirrhosis (Chronic) Ovarian cancer (Chronic) Acute bronchitis (Inactive) Surgical History History of appendectomy History of liver biopsy 01/01/18-performed at [facility] History of thyroid surgery History of total abdominal hysterectomy Family History Other Family history non-contributory Social History Communication Ability: Effective Beliefs That Will Affect Care: None Current Living Situation: Spouse Other Information That Helps Us Care for You: No Feels Safe at Home: Yes Safety Concerns: Feels Safe At This Time Smoking Status: Former smoker Hx Alcohol Use: No Hx Substance Use: No Review of Systems Constitutional: + fatigue and + malaise; no fever and no chills Eyes: no problem reported Ear, Nose, Mouth, Throat: + dry mouth; no dysphagia and no pain with swallowing Respiratory: as per Subjective / HPI Cardiovascular: as per Subjective / HPI; no palpitations Gastrointestinal: + bloating; no abdominal pain Musculoskeletal: + swelling Integumentary: as per Subjective / HPI Neurologic: no dizziness and no confusion Psychiatric: no problem reported Physical Exam Vital Signs (Past 24 Hours): Last Vital Signs Temp 36.5 C 11/02/18 07:42 Pulse 101 H 11/02/18 07:42 Resp 18 11/02/18 07:42 BP 105/55 L 11/02/18 07:43 Pulse Ox 90 11/02/18 07:42 Constitutional: VS as above. Mildly ill-appearing Eyes: sclera icteric bilaterally Respiratory: + labored breathing Auscultation: + rales and + rhonchi Cardiovascular: Rate/Rhythm: regular rate and regular rhythm Chest (Breasts): Additional Comments: angiectasias noted on chest Gastrointestinal (Abdomen): Inspection/Auscultation: + abdomen distended and normal bowel sounds Percussion/Palpation: abdomen soft; abdomen nontender midline scar noted Musculoskeletal: 2+ BLE Skin: + jaundice Psychiatric: A+Ox3, euthymic affect Results & Data Laboratory Results Abnormal lab results 11/01/18 11/01/18 11/01/18 Range/Units 17:58 18:08 22:43 RBC (4.2-5.4) M/uL Hgb (12.0-16.0) g/dL Hct (37-47) % RDW Std Deviation (36.4-46.3) fL RDW Coeff of Elysia (11.5-14.5) % Plt Count (130-400) K/uL MPV (7.4-10.4) fL Immature Gran # (Auto) (0.00-0.02) K/uL Lymph # (Auto) (1.2-3.4) K/uL PT (9.0-12.0) Seconds INR (0.9-1.1) Sodium 127 L (136-145) mmol/L Potassium 3.4 L (3.5-5.1) mmol/L Chloride 96 L (98-107) mmol/L BUN 26 H (7-18) mg/dl Creatinine 2.55 H D (0.6-1.2) mg/dl Glucose 174 H (70-99) mg/dl Calcium 8.2 L (8.5-10.1) mg/dl Total Bilirubin (0.2-1) mg/dl AST (15-37) U/L Total Protein (6.4-8.2) gm/dl Albumin (3.4-5.0) gm/dl Albumin/Globulin Ratio (0.9-2) Urine Appearance Turbid H (Clear) Urine Protein 2+ H (Negative) Urine Ketones Trace H (Negative) Urine Blood 3+ H (Negative) Urine Nitrite Positive H (Negative) Urine Bilirubin 1+ H (Negative) Urine WBC (Auto) 5-10 H (0-5) /hpf Urine RBC (Auto) >30 H (0-4) /hpf U Hyaline Cast (Auto) >30 H (0-5) /lpf U Epithel Cells (Auto) >30 H (0-5) /lpf Ur Renal Epithelial Cell 20-30 H (0-5) /lpf Granular Casts >30 H (0) /lpf Urine Osmolality 288 L (500-800) mOsm/kg 11/02/18 11/02/18 11/02/18 Range/Units 06:55 06:55 06:55 RBC 2.27 L (4.2-5.4) M/uL Hgb 7.7 L (12.0-16.0) g/dL Hct 22.5 L (37-47) % RDW Std Deviation 64.1 H (36.4-46.3) fL RDW Coeff of Elysia 17.7 H (11.5-14.5) % Plt Count 44 L (130-400) K/uL MPV 10.8 H (7.4-10.4) fL Immature Gran # (Auto) 0.07 H (0.00-0.02) K/uL Lymph # (Auto) 0.80 L (1.2-3.4) K/uL PT 17.4 H (9.0-12.0) Seconds INR 1.8 H (0.9-1.1) Sodium 127 L (136-145) mmol/L Potassium (3.5-5.1) mmol/L Chloride 96 L (98-107) mmol/L BUN 32 H (7-18) mg/dl Creatinine 2.94 H D (0.6-1.2) mg/dl Glucose 113 H (70-99) mg/dl Calcium 8.4 L (8.5-10.1) mg/dl Total Bilirubin 4.7 H (0.2-1) mg/dl AST 66 H (15-37) U/L Total Protein 6.1 L (6.4-8.2) gm/dl Albumin 2.5 L (3.4-5.0) gm/dl Albumin/Globulin Ratio 0.7 L (0.9-2) Urine Appearance (Clear) Urine Protein (Negative) Urine Ketones (Negative) Urine Blood (Negative) Urine Nitrite (Negative) Urine Bilirubin (Negative) Urine WBC (Auto) (0-5) /hpf Urine RBC (Auto) (0-4) /hpf U Hyaline Cast (Auto) (0-5) /lpf U Epithel Cells (Auto) (0-5) /lpf Ur Renal Epithelial Cell (0-5) /lpf Granular Casts (0) /lpf Urine Osmolality (500-800) mOsm/kg (1) Acute kidney failure Acute renal failure type: unspecified Qualified Code(s): N17.9 - Acute kidney failure, unspecified (2) Cirrhosis Ascites presence: without ascites Hepatic cirrhosis type: unspecified hepatic cirrhosis Qualified Code(s): K74.60 - Unspecified cirrhosis of liver (3) Community acquired pneumonia Laterality: unspecified laterality Qualified Code(s): J18.9 - Pneumonia, unspecified organism
--- NOTE | 2018-11-02 09:41 | Hospitalist Progress Note ---
Date of Service November 02, 2018 Assessment & Plan (1) Acute kidney failure: Rapid rise in creatinine over the last few days having concern for hepatorenal syndrome FeNa nearly 0. Urine Na 6. With her known advanced cirrhosis and the continue low blood pressure is concerning for hepatorenal syndrome type 1. Nephrology is continuing to follow and we will continue albumin infusions. I have ordered a renal ultrasound without obstructive uropathy Continue albumin infusions Started midodrine 5mg TID. Octreotide 100mcg SC q8h. HOLDING Aldactone and lasix. Checked cortisol level - 18. Place moore. For accurate I's and O's I had several discussions with the patient and her regarding my concerns of this new-onset ARF. If this is indeed Hepatorenal syndrome type 1 this portends a very poor prognosis. If Hepatorenal syndrome is present - cause? possibly the stress of the recent flu infection. NO symptoms/signs of SBP but could consider a diagnostic paracentesis. Her meld score is 33 on 11/02 (2) Influenza A: tamiflu x 5 days LAST DOSE 11/03, she has improved Has associated acute bronchitis/possible pneumonia. Doxycycline for coverage of possible pneumonia. (3) Community acquired pneumonia: atypical pneumonia vs viral (flu) cont doxy last dose 11/05 (4) Cirrhosis: Patient with cirrhosis thought to be secondary to fatty liver disease/NA SH. She follows with hepatology at [facility]. She had an EGD performed in 2016 which showed no varices. She had a colonoscopy performed in 2012. Dr Ford reviewed the outpatient [employer] record. There is a note from Dr. Ayoub - [facility] - from 06/2018. Transplant was heavily discussed at that visit, but given the concern of active ovarian cancer, there was little hope she would be a transplant candidate. The patient and her confirm she has been told since that time that she is NOT a liver transplant candidate. Her oncologist has also told her this. No indication to transfer to [facility] at this time. She also told me late in the day today that she "doesn't want to go to [facility]" for any reason. (5) Ovarian cancer: Patient diagnosed with ovarian cancer in 2010. She comments that it had low malignant potential. Underwent surgical excision (total abdominal hysterectomy/BSO) in 2010. CT abd/pelvis from 09/2018 suggests metastatic disease. CA-125 has been high as well (345 on 10/19/18). (6) Acute bronchitis: 2nd to the flu virus. cont prednisone 40mg daily, duonebs q6h, mucinex, advair doxycycline for possible secondary pneumonia (7) Chronic airway obstruction, not elsewhere classified: suspect COPD from long-standing smoking history. see "acute bronchitis" above (8) Hyponatremia: 2nd to cirrhosis and ARF. holding diuretics. (9) Anemia: 2nd to cirrhosis/liver disease. H/H acceptable. 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 stable. (11) Candidiasis of mouth and esophagus: nystatin solution qid improving (12) Tobacco use disorder: recently quit declines nicoderm (13) Chest wall pain: reproducible on exam 2nd to coughing k-pad has helped (14) DVT prophylaxis: chemical means contraindicated due to low platelets SCDs ambulating updated at bedside today multiple times today Subjective Patient is chronically ill she is fatigued and winded she has difficulty moving about the room she is got massive lower extremity edema and likely a distended protuberant abdomen from ascites. There is large concern she is going into hepatorenal syndrome type I as she is had elevation of her INR bilirubin and creatinine associated with some hyponatremia. She is being followed by nephrology Review of Systems ROS: Patient appears chronically ill and much older than her stated age No double vision blurry vision No problems with speech or swallowing No palpitations, chest pain or pressure Marked dyspnea on exertion Distended abdomen mild nausea and loss of appetite No burning urine as a Moore catheter No focal joint pain or muscle pain No skin rashes or oral lesions she is easily jaundiced with scleral icterus seen No unusual bruising or bleeding No focused back pain or numbness or loss of strength No changes in memory or confusion Physical Exam Vital Signs (Past 24 Hours): Last Vital Signs Temp 36.5 C 11/02/18 07:42 Pulse 101 H 11/02/18 07:42 Resp 18 11/02/18 07:42 BP 105/55 L 11/02/18 07:43 Pulse Ox 90 11/02/18 07:42 The patient appeared chronically ill fatigued Vital signs as documented. Head exam is unremarkable. normocephalic, atraumatic scleral icterus is seen as well as buccal jaundice Neck is with mild jugular venous distension, thyromegaly, or lymphademopathy Lungs are diminished at bases she has bibasilar rales also noted Cardiac exam reveals Rhythm is regular. First and second heart sounds normal. Abdominal exam reveals normal bowel sounds, protuberant with dullness to percuss ion no masses, no organomegaly Extremities are moderately edematous and both pedal pulses are present Neurologic exam is A&Ox3, no focal deficits, strength globally weak Psychologically seems depressed Skin is warm Dry and jaundiced (1) Ovarian cancer Laterality: unspecified laterality Qualified Code(s): C56.9 - Malignant neoplasm of unspecified ovary (2) Acute kidney failure Acute renal failure type: unspecified Qualified Code(s): N17.9 - Acute kidney failure, unspecified (3) Anemia Anemia type: unspecified type Qualified Code(s): D64.9 - Anemia, unspecified (4) Cirrhosis Ascites presence: without ascites Hepatic cirrhosis type: unspecified hepatic cirrhosis Qualified Code(s): K74.60 - Unspecified cirrhosis of liver (5) Community acquired pneumonia Laterality: unspecified laterality Qualified Code(s): J18.9 - Pneumonia, unspecified organism (6) Acute bronchitis Bronchitis organism: unspecified organism Qualified Code(s): J20.9 - Acute bronchitis, unspecified
--- NOTE | 2018-11-02 10:22 | Nephrology Consultation ---
Date of Consultation November 02, 2018 Assessment & Plan (1) Cirrhosis: -- GI consultation reviewed -- Bili improving -- Previously told that she would not be a liver transplant candidate (2) Acute kidney failure: -- Urine sodium 6 consistent with suspected HRS -- Urine output reduced -- Volume status acceptable -- Prognosis is guarded -- Granular casts noted consistent with ATN -- Baseline creatinine 1.0 mg/dL -- Certainly a component of STEPHANIE related to CTA is possible -- Continue octreotide, midodrine, and albumin -- Maintain positive fluid balance -- Hold aldactone and lasix -- Renal US requested -- Document I/O's and repeat metabolic profile tomorrow AM -- Confirm liver transplant candidacy -- Medications are appropriately dosed for kidney function (3) Community acquired pneumonia: -- Atypical pneumonia vs viral (flu) -- Remains on IV doxycycline (4) Influenza A: (5) Anemia: -- Transfusion support to maintain Hgb > 8 -- Monitor closely -- Check peripheral smear -- Acute on chronic with acute on chronic thrombocytopenia suspected related to worsening portal HTN -- No signs of active bleeding History of Present Illness Reason for Consultation: IZABEL Requesting Physician: Colton Restrepo MD Attending Physician: Colton Restrepo MD History of Present Illness Mrs. Jennifer Cordero is a 58 year-old female with JAVIER cirrhosis. She follows with Dr. Ayoub at [facility]. Unfortunately, she is not a transplant candidate due to a history of ovarian cancer. At her last hepatology visit in May of 2018, MELD was 17. Complications of her liver disease include hepatic encephalopathy, ascites, hypoalbuminemia, and lower extremity edema. and was recently started on both Aldactone as well as Lasix. Jennifer presented to [facility] with cough, and dyspnea. She tested positive for influenza A. CT demonstrated diffuse groundglass opacities suggestive of CAP. She has been started on IV Doxycycline and Tamiflu. During this admission she has been noted to have worsening hepatic and renal function. Total bilirubin is now improving. Unfortunately, creatinine continues to rise. Midodrine, octreotide, and IV albumin were started yesterday. She is non-oliguric. Dyspnea is improving. She remains afebrile. Jennifer was seen and evaluated with her at the bedside. Allergies Allergy/AdvReac Type Severity Reaction Status Date / Time levofloxacin Allergy Unknown Rash Verified 10/29/18 21:59 Penicillins Allergy Unknown Rash/Trouble Verified 10/29/18 21:59 Breathing Sulf Drugs Allergy Unknown Rash Uncoded 10/29/18 21:59 Home Medications Home Medications Medication Instructions Recorded Confirmed Type omeprazole 20 mg PO DAILY 04/23/18 10/29/18 History rifaximin 550 mg PO AMHS 04/23/18 10/29/18 History spironolactone 50 mg PO TID 04/23/18 10/29/18 History ergocalciferol (vitamin D2) 50,000 unit PO WK 10/11/18 10/29/18 History [Vitamin D2] furosemide [Lasix] 20 mg PO DAILY 10/11/18 10/29/18 History Patient History Medical History Cirrhosis (Chronic) Ovarian cancer (Chronic) Acute bronchitis (Inactive) Surgical History History of appendectomy History of liver biopsy 01/01/18-performed at [facility] History of thyroid surgery History of total abdominal hysterectomy Family History Other Family history non-contributory Social History Preferred Language: Czech Communication Ability: Effective Ward Service Supervisor Required: No Beliefs That Will Affect Care: None Current Living Situation: Spouse Other Information That Helps Us Care for You: No Feels Safe at Home: Yes Safety Concerns: Feels Safe At This Time Smoking Status: Former smoker Hx Alcohol Use: No Hx Substance Use: No Review of Systems Constitutional: + body aches and + fatigue; no fever and no chills Eyes: no problem reported Ear, Nose, Mouth, Throat: no dysphagia and no problem reported Respiratory: as per Subjective / HPI, + cough and + dyspnea Cardiovascular: no chest pain, no palpitations and no edema Gastrointestinal: no abdominal pain, no diarrhea/loose stools and no problem reported Genitourinary (Female): no problem reported Musculoskeletal: no problem reported Integumentary: no rash and no problem reported Neurologic: no problem reported Psychiatric: no problem reported Hematologic / Lymphatic: no problem reported Physical Exam Vital Signs (Past 24 Hours): Last Vital Signs Temp 36.5 C 11/02/18 07:42 Pulse 101 H 11/02/18 07:42 Resp 18 11/02/18 07:42 BP 105/55 L 11/02/18 07:43 Pulse Ox 90 11/02/18 07:42 Constitutional: well developed and + ill appearing; no acute distress and not edematous Eyes: + scleral abnormality; no corneal abnormality ENMT: Mouth: no oral mucosal abnormality and oral mucous membranes not dry Neck: normal visual inspection and trachea midline Respiratory: no respiratory distress Auscultation: + rales; no wheezes Cardiovascular: Rate/Rhythm: + tachycardic Heart Sounds: normal S1 and normal S2; no murmur and no cardiac rub Extremities: no edema Gastrointestinal (Abdomen): Inspection/Auscultation: + abdomen distended Percussion/Palpation: abdomen soft; abdomen nontender Musculoskeletal: Extremities: no cyanosis, no clubbing and no petechiae Skin: + turgor decreased; no rashes Neurologic: Motor/Sensory: no tremor and no asterixis Psychiatric: Affect: no depressed affect Results & Data Laboratory Results Laboratory Results - last 24 hr 11/01/18 11/01/18 11/01/18 17:58 17:58 17:58 WBC RBC Hgb Hct MCV MCH MCHC RDW Std Deviation RDW Coeff of Elysia Plt Count MPV Immature Gran % (Auto) Neut % (Auto) Lymph % (Auto) Sanders % (Auto) Eos % (Auto) Baso % (Auto) Immature Gran # (Auto) Neut # (Auto) Lymph # (Auto) Sanders # (Auto) Eos # (Auto) Baso # (Auto) Tear Drop Cells PT INR Sodium 127 L Potassium 3.4 L Chloride 96 L Carbon Dioxide 21 Anion Gap 10.0 BUN 26 H Creatinine 2.55 H D Est Cr Clr Drug Dosing 26.6 Est GFR ( Amer) 23.2 Est GFR (Non-Af Amer) 20.0 BUN/Creatinine Ratio 10.2 Glucose 174 H Osmolality 280 Calcium 8.2 L Total Bilirubin AST ALT Alkaline Phosphatase Total Protein Albumin Globulin Albumin/Globulin Ratio TSH 0.552 Random Cortisol 18.69 Urine Color Urine Appearance Urine pH Ur Specific [place] Urine Protein Urine Glucose (UA) Urine Ketones Urine Blood Urine Nitrite Urine Bilirubin Urine Urobilinogen Ur Leukocyte Esterase Urine WBC (Auto) Urine RBC (Auto) U Hyaline Cast (Auto) U Epithel Cells (Auto) Urine Bacteria (Auto) Ur Renal Epithelial Cell Granular Casts Urine Yeast Urine Osmolality Ur Random Creatinine Ur Random Sodium 11/01/18 11/01/18 11/01/18 18:08 18:08 22:43 WBC RBC Hgb Hct MCV MCH MCHC RDW Std Deviation RDW Coeff of Elysia Plt Count MPV Immature Gran % (Auto) Neut % (Auto) Lymph % (Auto) Sanders % (Auto) Eos % (Auto) Baso % (Auto) Immature Gran # (Auto) Neut # (Auto) Lymph # (Auto) Sanders # (Auto) Eos # (Auto) Baso # (Auto) Tear Drop Cells PT INR Sodium Potassium Chloride Carbon Dioxide Anion Gap BUN Creatinine Est Cr Clr Drug Dosing Est GFR ( Amer) Est GFR (Non-Af Amer) BUN/Creatinine Ratio Glucose Osmolality Calcium Total Bilirubin AST ALT Alkaline Phosphatase Total Protein Albumin Globulin Albumin/Globulin Ratio TSH Random Cortisol Urine Color Dark Yellow Urine Appearance Turbid H Urine pH 5.0 Ur Specific [place] 1.023 Urine Protein 2+ H Urine Glucose (UA) Negative Urine Ketones Trace H Urine Blood 3+ H Urine Nitrite Positive H Urine Bilirubin 1+ H Urine Urobilinogen Negative Ur Leukocyte Esterase Negative Urine WBC (Auto) 5-10 H Urine RBC (Auto) >30 H U Hyaline Cast (Auto) >30 H U Epithel Cells (Auto) >30 H Urine Bacteria (Auto) Negative Ur Renal Epithelial Cell 20-30 H Granular Casts >30 H Urine Yeast Not Reportable Urine Osmolality 288 L Ur Random Creatinine 280.0 Ur Random Sodium 6 11/02/18 11/02/18 11/02/18 06:55 06:55 06:55 WBC 7.93 RBC 2.27 L Hgb 7.7 L Hct 22.5 L MCV 99.1 MCH 33.9 MCHC 34.2 RDW Std Deviation 64.1 H RDW Coeff of Elysia 17.7 H Plt Count 44 L MPV 10.8 H Immature Gran % (Auto) 0.9 Neut % (Auto) 81.6 Lymph % (Auto) 10.1 Sanders % (Auto) 7.3 Eos % (Auto) 0.0 Baso % (Auto) 0.1 Immature Gran # (Auto) 0.07 H Neut # (Auto) 6.47 Lymph # (Auto) 0.80 L Sanders # (Auto) 0.58 Eos # (Auto) 0.00 Baso # (Auto) 0.01 Tear Drop Cells 1+ PT 17.4 H INR 1.8 H Sodium 127 L Potassium 3.8 Chloride 96 L Carbon Dioxide 24 Anion Gap 7.0 BUN 32 H Creatinine 2.94 H D Est Cr Clr Drug Dosing 23.1 Est GFR ( Amer) 19.5 Est GFR (Non-Af Amer) 16.8 BUN/Creatinine Ratio 10.9 Glucose 113 H Osmolality Calcium 8.4 L Total Bilirubin 4.7 H AST 66 H ALT 38 Alkaline Phosphatase 90 Total Protein 6.1 L Albumin 2.5 L Globulin 3.6 Albumin/Globulin Ratio 0.7 L TSH Random Cortisol Urine Color Urine Appearance Urine pH Ur Specific [place] Urine Protein Urine Glucose (UA) Urine Ketones Urine Blood Urine Nitrite Urine Bilirubin Urine Urobilinogen Ur Leukocyte Esterase Urine WBC (Auto) Urine RBC (Auto) U Hyaline Cast (Auto) U Epithel Cells (Auto) Urine Bacteria (Auto) Ur Renal Epithelial Cell Granular Casts Urine Yeast Urine Osmolality Ur Random Creatinine Ur Random Sodium (1) Cirrhosis Ascites presence: without ascites Hepatic cirrhosis type: unspecified hepatic cirrhosis Qualified Code(s): K74.60 - Unspecified cirrhosis of liver (2) Acute kidney failure Acute renal failure type: unspecified Qualified Code(s): N17.9 - Acute kidney failure, unspecified (3) Community acquired pneumonia Laterality: unspecified laterality Qualified Code(s): J18.9 - Pneumonia, unspecified organism (4) Anemia Anemia type: unspecified type Qualified Code(s): D64.9 - Anemia, unspecified
--- NOTE | 2018-11-02 14:19 | Ultrasound Report ---
RENAL ULTRASOUND HISTORY: Acute kidney injury. COMPARISON: Abdominal ultrasound 06/09/2018. FINDINGS: Right kidney: 9.8 cm. No hydronephrosis. Normal corticomedullary differentiation and cortical thickne ss. Left kidney: 10.2 cm. No hydronephrosis. Normal corticomedullary differentiation and cortical thickne ss. Bladder: No bladder wall thickening. The bilateral ureteral jets were identified. Miscellaneous: Cirrhotic liver with splenomegaly and a small amount of ascites. The spleen measures 1 7 cm in length. IMPRESSION: 1. Normal kidneys. No hydronephrosis. 2. Cirrhosis, splenomegaly, and a small amount of ascites. This has progressed. Electronically signed by: Tylor Montalvo M.D. 11/02/2018 2:18 PM
[2018-11-03] MEDS: ALBUMIN 25% 50 ML IV SCH ×8 (01:30→22:51)
[2018-11-03] MEDS ORDERED: COUGH DROP (SUGAR FREE) LOZ 24 LOZ/1 BOX BUCCAL PRN (02:38)
[2018-11-03] MEDS ORDERED: BENZONATATE 100 MG CAPSULE PO ONE (03:03)
[2018-11-03] MEDS ORDERED: ACETAMINOPHEN 325 MG TAB PO PRN (03:03)
[2018-11-03] MEDS: OCTREOTIDE ACETATE 100 MCG/ML VIAL SQ SCH (03:11)
[2018-11-03] MEDS ORDERED: FUROSEMIDE 20 MG in SYRINGE 0 ML IV ONE (04:39)
[2018-11-03] MEDS ORDERED: ALBUMIN 25% 50 ML IV ONE (04:41)
[2018-11-03] MEDS ORDERED: FUROSEMIDE 40 MG/4 ML VIAL IV STA (04:41)
[2018-11-03] MEDS ORDERED: FUROSEMIDE 40 MG in SYRINGE 0 ML IV STA (04:50)
[2018-11-03] MEDS ORDERED: LORazepam 1 MG/2 ML VIAL IV STA (05:22)
[2018-11-03] MEDS ORDERED: LORazepam 2 MG/4 ML VIAL ONE (05:26)
[2018-11-03 05:32] LABS: Hematocrit (blood only) 26.8 % (37-47); Mean Corpuscular Hgb Conc 33.6 g/dL (32-36); Mean Corpuscular Volume 101.9 fL (80-100); Mean Platelet Volume 11.6 fL (7.4-10.4); Platelet Count 79 K/uL (130-400); RDW Coefficient of Variation 17.9 % (11.5-14.5); RDW Standard Deviation 66.3 fL (36.4-46.3); Red Blood Count 2.63 M/uL (4.2-5.4); White Blood Count 13.65 K/uL (4.8-10.8)
[2018-11-03 05:33] LABS: iSTAT Allen Test Pass; iSTAT Arterial Blood Gas HCO3 19 meg/L (19-24); iSTAT Arterial Blood Gas pCO2 35 mmHg (35-46); iSTAT Arterial Blood Gas pH 7.33 (7.35-7.45); iSTAT Carbon Dioxide 20 mEq/l (24-31); iSTAT FiO2 100 %; iSTAT Site L Radial
--- NOTE | 2018-11-03 05:41 | Progress Note ---
Date of Service November 03, 2018 Assessment & Plan (1) Pulmonary edema: S; Called to evaluate the patient. Hypoxic, increased O2 requirement. O; 93% on 15 L oxymask, bilateral crackles. CXR--significant pulmonary edema. ABG PH 7.36, Co2 36, O2 58, HCO3 18.5 A/P; Acute hypoxic respiratory failure, acute pulmonary edema - Discussed with wind energy technician, transferred to ICU, BIPAP initiated - 40 IV Lasix, albumin - Labs; ABG, CBC, BMP, Ph, Mag, Lactate, procalcitonin - CXR Physical Exam Vital Signs (Past 24 Hours): Last Vital Signs Temp 36.4 C L 11/03/18 04:55 Pulse 97 H 11/03/18 04:55 Resp 18 11/03/18 04:55 BP 112/70 11/03/18 04:55 Pulse Ox 93 11/03/18 04:55
[2018-11-03 05:46] LABS: Basophils # (auto) 0.05 K/uL (0-0.2); Basophils % (auto) 0.4 %; Echinocytes 1+; Immature Granulocytes % (auto) 2.2 %; Lymphocytes # (auto) 1.19 K/uL (1.2-3.4); Lymphocytes % (auto) 8.7 %; Monocytes # (auto) 1.01 K/uL (0.11-0.59); Monocytes % (auto) 7.4 %; Neutrophils % (auto) 81.3 %; Ovalocytes 1+; Polychromasia 1+; Tear Drop Cells 1+
[2018-11-03 05:50] LABS: BUN Creatinine Ratio 11.4 (10-20); Calcium 8.7 mg/dl (8.5-10.1); Creatinine Clr Calc Pharmacy 20.4 ml/min; Est GFR (African American) 16.8; Est GFR (Non-African American) 14.5; Magnesium 2.3 mg/dl (1.8-2.4); Phosphorus 4.7 mg/dl (2.5-4.9)
--- NOTE | 2018-11-03 06:56 | Critical Care Progress Note ---
Date of Service November 03, 2018 Assessment & Plan (1) Admitted to intensive care unit: Jennifer Cordero is a 58 y/o female with history of cirrhosis (not transplant candidate per review of old EMR), Ovarian Ca, positive current influenza (10/29), who required transfer to the ICU for acute hypoxic respiratory failure. Neuro: * was able to answer questions for orientation but was otherwise confused, needed redirection as was trying to remove BiPAP, with hypoxic respiratory failure on BiPAP requiring intubation. * Versed 1mg IV q2h PRN ordered s/p intubation with considerations for hepatic metabolism in a patient with cirrhosis. * Blood pressures stable s/p intubation with adequate brain perfusion and Propofol was ordered * Considered CT Scan for cerebral hemmorhage as patient with liver disease and INR of 1.8, but do not think this is likely. * Ammonia level was ordered for consideration for hepatic encephalopathy. Cardiac/Vascular: * Sinus tachycardia with rates in 90s-110. * Respiratory distress does not appear to be cardiac, systolic pressures have been greater than 100 mm Hg supporting this is not cardiogenic. * Blood pressures support stable hemodynamics with ranges 107-170s/51-78. Will monitor as patient is on proprofol after pressures were deemed safe to prevent hypotensive even from medication. Midodrine given this AM. * Patient with 3rd spacing and will contact Dr. Chowdhury, plush brusher for recs on volume control. * Echocardiogram ordered by night resident and performed this morning 6:30am showed: * Left ventricle hyperdynamic * Mild valvular aortic stenosis * Normal LV size, normal LV wall thickness, EF: 65-70%, with grade I diastolic dysfunction; LV wall motion is normal * Sub-optimal image quality with appearance of late transit of contrast from right to left consistent with intrapulmonary shunting or less likely a PFO. Pulmonary * Was on BiPAP upon transfer but remained hypoxic, patient confused trying to remove mask, and this needed intubation for acute hypoxic respiratory failure. * Bilateral breath sounds auscultated s/p intubation, CXR ordered for confi rmation of positioning. * During acute respiratory distress this AM around 4:30am, CXR ordered by overnight Resident showed progressive pulmonary edema, diffuse bilateral parenchymal infiltrative change - progressive from the prior study. * Pulmonary edema doubt cardiac in etiology. Cirrhosis patient with hypoalbuminemia causing poor osmotic pressure in the lung vs. consideration for infectious etiology as positive influenza with bacterial superinfection vs. consideration for ARDS. * Was on Prednisone 40mg daily, will switch to IV Solu-medrol 40mg qday. GI - Cirrhosis * MELD score yesterday was 33, pre review of old EMR, not a candidate for transplant. * Trace ascites noted on U/S renal from yesterday * Octreotide for protection against esophageal varices rupture * Famotidine 20mg IV q24 for ulceration protection * Xifaxan 550mg PO can be crushed and still given to protect from hyperammonemia. Renal/electrolytes * History of chronic hyponatremia with value this morning of 130 which appears at baseline. * IZABEL- Baseline creatinine appears 1.0-1.2. Increased on 11/01 AM=1.58, 11/01 PM=2.55, 11/02=2.94, this morning = 3.33. * Nephrology was following patient on floor and note from yesterday reviewed with urine sodium 6 consistent with diagnosis of Hepato-renal syndrome. * Granular casts noted consistent with ATN. * Continue with Albumin; Midodrine was held here to prevent hypertensive crisis as pressures were appropriate. * Medications reviewed with pharmacist for appropriate renal dosing * Patient received Lasix 40mg IV by overnight team because of pulmonary edema and had good urine output of 1L. After discussion with Dr. Chowdhury - Game Master, I will order another Lasix 40mg IV to help mobilize fluid from lung and 3rd spacing. Will monitor for signs of hypotension. * Potassium of 4.0 this morning WNL. * Anion gap this morning of 12 with Lactic acid of 5.8. * Landeros cath placed with adequate response to lasix and will order another dose of Lasix 40mg IV to help mobilize fluid. Endo * No history of Diabetes Mellitus * Will monitor for hypoglycemia as with cirrhosis compromising liver's ability for gluconeogensis and release of glucagon stores from liver. Heme * WBC elevated today to 13.65 * Hgb is 9.0 this morning and appears stable/consistent with previous 3 days, patient with history of anemia with recent baseline appearing to be at 10. * Platelets today 79, improved from yesterday 44, history of chronic thrombocytopenia and appears at baseline of 70s. * INR reordered for today, yesterday had value of 1.8. Will order Vitamin K injection to support liver's ability to produce coagulation factors via epoxide reductase. * Will monitor for signs of bleeding as uremia can cause platelet dysfunction. ID * Previous positive Influenza A on 10/29/18 and treated with Tamiflu, renally dosed. * Was being treated for CAP with Doxycycline 100mg BID PO with total of 6 doses (3 days). * Patient with positive viral influenza puts her at risk for super bacterial infection and will treat accordingly. * Vancomycin 2,000mg IV qday for MRSA coverage * Doxycycline switched to IV for gram negative and atypical coverage. Lines * Currently peripheral lines intact * Will need central venous access and will need to get consent from spouse. DVT ppx * History of ovarian cancer causing hypercoaguable state * History of Liver cirrhosis with recent INR 1.8 causing hypocoaguable state * Uremia prediposes to platelet dysfunction. Resuscitation Status: DNR Supervising Physician Co-Signing Physician Notes Patient with multisystem organ failure. Acute hypoxic respiratory failure is likely secondary to anasarca as well as hepatopulmonary shunting syndrome. Patient is not a candidate for transplant due to active infection as well as ovarian malignancy with increasing tumor markers. She also has acute kidney injury/acute renal failure most likely secondary to hepatorenal syndrome. She required intubation today for hepatic encephalopathy and inability to be redirected as she Just disconnecting her noninvasive ventilator. An extensive discussion with the patient's and son regarding prognosis. Unfo rtunately this is a grim prognosis as the main pathology is secondary to her liver and now that she has hepatopulmonary syndrome there are no advanced treatments beyond transplantation which she is not a candidate for. stated she would not want heroic measures undertaken in event of cardiac arrest and accordingly we made the patient a level 5 DO NOT RESUSCITATE. I am very concerned we may not be able to liberate the patient from the ventilator given the significant liver disease with an elevated meld. Additionally I do not feel her to be an appropriate candidate for renal replacement therapy. I believe the patient is in a terminal condition without meaningful chance of recovery. If the family wants to proceed with comfort measures and terminal extubation I am in agreement with this. I have personally spent 55 minutes of critical care time in the direct management of this patient. This is a life/limb threatening event. This includes time spent evaluating patient, direct bedside care, chart review, placing orders, interpretation of diagnostic studies, discussion with consultants, patient, and/or family members regarding treatment decisions, as well as other required patient management activities. This time is exclusive of all separately billable procedures, and teaching time and separate from and in addition to any other critical care service time. Subjective Caveat: History Limited by - Respiratory Distress requiring intubation. Jennifer was having difficulty tolerating her BiPAP this morning and was attempting to remove mask and need continued re-direction. Physical Exam Vital Signs (Past 24 Hours): Last Vital Signs Temp 36.9 C 11/03/18 05:30 Pulse 105 H 11/03/18 06:01 Resp 24 11/03/18 06:01 BP 113/78 11/03/18 06:01 Pulse Ox 95 11/03/18 06:01 Constitutional: + acute distress, + ill appearing and + edematous ENMT: upper dentures, removed for intubation Neck: trachea midline Respiratory: + respiratory distress and + uses accessory muscles Aus cultation: + crackles (bilateral and diffuse) Cardiovascular: Rate/Rhythm: regular rhythm and + tachycardic Extremities: + edema Gastrointestinal (Abdomen): Inspection/Auscultation: normal bowel sounds Percussion/Palpation: abdomen soft; abdomen nontender Musculoskeletal: extremity edema Skin: diffuse telangiectasia Neurologic: moves all extremities, awake and + confused Psychiatric: Orientation: alert and oriented x 3 (able to answer questions for orientation but confused) Results & Data Laboratory Results Laboratory Results - last 24 hr 11/02/18 11/02/18 11/03/18 14:28 14:28 05:12 WBC 13.65 H RBC 2.63 L Hgb 8.9 L 9.0 L Hct 26.8 L MCV 101.9 H MCH 34.2 H MCHC 33.6 RDW Std Deviation 66.3 H RDW Coeff of Elysia 17.9 H Plt Count 79 L D MPV 11.6 H Immature Gran % (Auto) 2.2 Neut % (Auto) 81.3 Lymph % (Auto) 8.7 [place] % (Auto) 7.4 Eos % (Auto) 0.0 Baso % (Auto) 0.4 Immature Gran # (Auto) 0.30 H Neut # (Auto) 11.10 H Lymph # (Auto) 1.19 L [place] # (Auto) 1.01 H Eos # (Auto) 0.00 Baso # (Auto) 0.05 Polychromasia 1+ Tear Drop Cells 1+ Ovalocytes 1+ Echinocytes 1+ Sample Site POC pH POC pCO2 POC pO2 POC HCO3 POC Total CO2 POC Base Excess POC ABG O2 Sat Moises Test O2 Delivery Device POC FiO2 Sodium Potassium Chloride Carbon Dioxide Anion Gap BUN Creatinine Est Cr Clr Drug Dosing Est GFR ( Amer) Est GFR (Non-Af Amer) BUN/Creatinine Ratio Glucose Lactate Calcium Phosphorus Magnesium Ammonia Procalcitonin Nasal Screen MRSA (PCR) Blood Type O Positive Antibody Screen NEGATIVE 11/03/18 11/03/18 11/03/18 05:12 05:18 05:30 WBC RBC Hgb Hct MCV MCH MCHC RDW Std Deviation RDW Coeff of Elysia Plt Count MPV Immature Gran % (Auto) Neut % (Auto) Lymph % (Auto) [place] % (Auto) Eos % (Auto) Baso % (Auto) Immature Gran # (Auto) Neut # (Auto) Lymph # (Auto) [place] # (Auto) Eos # (Auto) Baso # (Auto) Polychromasia Tear Drop Cells Ovalocytes Echinocytes Sample Site L Radial POC pH 7.33 L POC pCO2 35 POC pO2 56 L POC HCO3 19 POC Total CO2 20 L POC Base Excess -8.0 POC ABG O2 Sat 88.0 L Moises Test Pass O2 Delivery Device Other POC FiO2 100 Sodium 130 L Potassium 4.0 Chloride 97 L Carbon Dioxide 21 Anion Gap 12.0 H BUN 38 H Creatinine 3.33 H D Est Cr Clr Drug Dosing 20.4 Est GFR ( Amer) 16.8 Est GFR (Non-Af Amer) 14.5 BUN/Creatinine Ratio 11.4 Glucose 104 H Lactate Calcium 8.7 Phosphorus 4.7 Magnesium 2.3 Ammonia Procalcitonin Nasal Screen MRSA (PCR) Negative Blood Type Antibody Screen 11/03/18 11/03/18 11/03/18 06:04 06:04 08:55 WBC RBC Hgb Hct MCV MCH MCHC RDW Std Deviation RDW Coeff of Elysia Plt Count MPV Immature Gran % (Auto) Neut % (Auto) Lymph % (Auto) [place] % (Auto) Eos % (Auto) Baso % (Auto) Immature Gran # (Auto) Neut # (Auto) Lymph # (Auto) [place] # (Auto) Eos # (Auto) Baso # (Auto) Polychromasia Tear Drop Cells Ovalocytes Echinocytes Sample Site POC pH POC pCO2 POC pO2 POC HCO3 POC Total CO2 POC Base Excess POC ABG O2 Sat Moises Test O2 Delivery Device POC FiO2 Sodium Potassium Chloride Carbon Dioxide Anion Gap BUN Creatinine Est Cr Clr Drug Dosing Est GFR ( Amer) Est GFR (Non-Af Amer) BUN/Creatinine Ratio Glucose Lactate 5.8 H* Calcium Phosphorus Magnesium Ammonia 74.0 H Procalcitonin 0.25 Nasal Screen MRSA (PCR) Blood Type Antibody Screen 11/03/18 09:04 WBC RBC Hgb Hct MCV MCH MCHC RDW Std Deviation RDW Coeff of Elysia Plt Count MPV Immature Gran % (Auto) Neut % (Auto) Lymph % (Auto) [place] % (Auto) Eos % (Auto) Baso % (Auto) Immature Gran # (Auto) Neut # (Auto) Lymph # (Auto) [place] # (Auto) Eos # (Auto) Baso # (Auto) Polychromasia Tear Drop Cells Ovalocytes Echinocytes Sample Site POC pH POC pCO2 POC pO2 POC HCO3 POC Total CO2 POC Base Excess POC ABG O2 Sat Moises Test O2 Delivery Device POC FiO2 Sodium Potassium Chloride Carbon Dioxide Anion Gap BUN Creatinine Est Cr Clr Drug Dosing Est GFR ( Amer) Est GFR (Non-Af Amer) BUN/Creatinine Ratio Glucose Lactate Calcium Phosphorus Magnesium Ammonia Cancelled Procalcitonin Nasal Screen MRSA (PCR) Blood Type Antibody Screen Medications Administered Albuterol (Duoneb) 3 ml NEB QIDR REHANA Stop: 11/29/18 15:59 Last Admin: 11/03/18 07:31 Dose: 3 ml Documented by: [id number] Admin: 11/02/18 19:52 Dose: 3 ml Documented by: [id number] Admin: 11/02/18 15:14 Dose: 3 ml Documented by: [id number] Admin: 11/02/18 11:12 Dose: 3 ml Documented by: [id number] Admin: 11/02/18 07:12 Dose: 3 ml Documented by: [id number] Admin: 11/01/18 19:13 Dose: 3 ml Documented by: [id number] Admin: 11/01/18 15:14 Dose: 3 ml Documented by: [id number] Admin: 11/01/18 11:27 Dose: 3 ml Documented by: [id number] Admin: 11/01/18 07:29 Dose: 3 ml Documented by: [id number] Admin: 10/31/18 19:24 Dose: 3 ml Documented by: [id number] Admin: 10/31/18 14:33 Dose: 3 ml Documented by: [id number] Admin: 10/31/18 11:08 Dose: 3 ml Documented by: [id number] Admin: 10/31/18 07:11 Dose: 3 ml Documented by: [id number] Admin: 10/30/18 19:18 Dose: 3 ml Documented by: [id number] Admin: 10/30/18 16:08 Dose: 3 ml Documented by: [id number] Albuterol (Duoneb) 3 ml NEB Q2H PRN PRN Reason: SOB/WHEEZING Stop: 11/29/18 15:57 Last Admin: 11/03/18 00:22 Dose: 3 ml Documented by: [id number] Fentanyl Citrate (Fentanyl Citrate) 100 mcg IV Q2H PRN PRN Reason: Severe Pain (7,8,9,10) Stop: 11/17/18 08:35 Last Admin: 11/03/18 09:06 Dose: 100 mcg Documented by: [id number] Furosemide (Lasix) 20 mg PO DAILY [facility] Stop: 11/29/18 08:59 Last Admin: 11/01/18 07:38 Dose: 20 mg Documented by: [id number] Admin: 10/31/18 08:34 Dose: 20 mg Documented by: [id number] Admin: 10/30/18 08:37 Dose: 20 mg Documented by: [id number] Albumin Human (Albumin 25%) 50 mls @ 50 mls/hr IV Q6H [facility] Stop: 12/01/18 01:59 Last Admin: 11/03/18 09:48 Dose: 50 mls/hr Documented by: [id number] Infusion: 11/03/18 02:33 Dose: 0 mls/hr Documented by: [id number] Admin: 11/03/18 01:30 Dose: 50 mls/hr Documented by: [id number] Infusion: 11/02/18 21:13 Dose: 0 mls/hr Documented by: [id number] Admin: 11/02/18 19:48 Dose: 50 mls/hr Documented by: [id number] Infusion: 11/02/18 15:04 Dose: 0 mls/hr Documented by: [id number] Admin: 11/02/18 14:12 Dose: 50 mls/hr Documented by: [id number] Infusion: 11/02/18 08:41 Dose: 0 mls/hr Documented by: [id number] Admin: 11/02/18 07:33 Dose: 50 mls/hr Documented by: [id number] Infusion: 11/02/18 03:23 Dose: 0 mls/hr Documented by: [id number] Admin: 11/02/18 02:07 Dose: 50 mls/hr Documented by: [id number] Albumin Human (Albumin 25%) 50 mls @ 50 mls/hr IV Q6H [facility] Stop: 12/01/18 02:59 Last Infusion: 11/03/18 04:02 Dose: 50 mls/hr Documented by: [id number] Admin: 11/03/18 02:55 Dose: 50 mls/hr Documented by: [id number] Infusion: 11/02/18 22:13 Dose: 0 mls/hr Documented by: [id number] Admin: 11/02/18 21:13 Dose: 50 mls/hr Documented by: [id number] Infusion: 11/02/18 16:55 Dose: 0 mls/hr Documented by: [id number] Admin: 11/02/18 15:05 Dose: 50 mls/hr Documented by: [id number] Infusion: 11/02/18 10:06 Dose: 0 mls/hr Documented by: [id number] Admin: 11/02/18 08:41 Dose: 50 mls/hr Documented by: [id number] Infusion: 11/02/18 04:29 Dose: 0 mls/hr Documented by: [id number] Admin: 11/02/18 03:25 Dose: 50 mls/hr Documented by: [id number] Octreotide Acetate 500 mcg/ (Sodium Chloride) 105 mls @ 10.5 mls/hr IV .Q10H [facility] Stop: 12/03/18 08:45 Last Admin: 11/03/18 09:08 Dose: 50 mcg/hr, 10.5 mls/hr Documented by: [id number] Famotidine 20 mg/ Syringe 5 mls @ 2.5 mls/min IV Q24H [facility] Stop: 12/03/18 10:59 Last Admin: 11/03/18 09:53 Dose: 2.5 mls/min Documented by: [id number] Vancomycin HCl 2,000 mg/ (Sodium Chloride) 540 mls @ 200 mls/hr IV TODAY@1000 ONE Stop: 11/03/18 12:41 Last Admin: 11/03/18 09:57 Dose: 200 mls/hr Documented by: [id number] Methylprednisolone 40 mg/ (Syringe) 0.64 mls @ 1.5 mls/min IV Q24H [facility] Stop: 12/03/18 09:59 Last Admin: 11/03/18 09:53 Dose: 1.5 mls/min Documented by: [id number] Propofol (Diprivan) 1,000 mg in 100 mls @ 2.796 mls/hr IV .Q24H [facility]; Protocol Stop: 11/04/18 09:28 Last Admin: 11/03/18 09:30 Dose: 5 mcg/kg/min, 2.8 mls/hr Documented by: [id number] Cosigned by: [id number] Menthol (Nice) 1 marisol BUCCAL PRN PRN PRN Reason: Cough Stop: 12/03/18 02:37 Last Admin: 11/03/18 02:53 Dose: 1 marisol Documented by: [id number] Midazolam HCl (Versed) 1 mg IV Q2H PRN PRN Reason: agitation/anxiety Stop: 12/03/18 08:35 Last Admin: 11/03/18 09:06 Dose: 1 mg Documented by: [id number] Midodrine (Proamatine) 5 mg PO TID@0800,1200,1700 [facility] Stop: 12/01/18 18:34 Last Admin: 11/03/18 09:53 Dose: 5 mg Documented by: [id number] Admin: 11/02/18 17:03 Dose: 5 mg Documented by: [id number] Admin: 11/02/18 12:19 Dose: 5 mg Documented by: [id number] Admin: 11/02/18 07:33 Dose: 5 mg Documented by: [id number] Admin: 11/01/18 19:56 Dose: 5 mg Documented by: [id number] Nystatin (Mycostatin) 5 ml PO QID [facility] Stop: 11/29/18 08:59 Last Admin: 11/03/18 09:53 Dose: 5 ml Documented by: [id number] Admin: 11/02/18 20:33 Dose: 5 ml Documented by: [id number] Admin: 11/02/18 17:04 Dose: 5 ml Documented by: [id number] Admin: 11/02/18 12:19 Dose: 5 ml Documented by: [id number] Admin: 11/02/18 07:35 Dose: 5 ml Documented by: [id number] Admin: 11/01/18 20:56 Dose: 5 ml Documented by: [id number] Admin: 11/01/18 17:19 Dose: 5 ml Documented by: [id number] Admin: 11/01/18 12:55 Dose: 5 ml Documented by: [id number] Admin: 11/01/18 07:43 Dose: 5 ml Documented by: [id number] Admin: 10/31/18 20:24 Dose: 5 ml Documented by: [id number] Admin: 10/31/18 19:40 Dose: 5 ml Documented by: [id number] Admin: 10/31/18 13:34 Dose: 5 ml Documented by: [id number] Admin: 10/31/18 08:34 Dose: 5 ml Documented by: [id number] Admin: 10/30/18 20:48 Dose: 5 ml Documented by: [id number] Admin: 10/30/18 17:18 Dose: 5 ml Documented by: [id number] Admin: 10/30/18 12:49 Dose: 5 ml Documented by: [id number] Admin: 10/30/18 08:41 Dose: 5 ml Documented by: [id number] Oseltamivir Phosphate (Tamiflu) 30 mg PO DAILY REHANA; Protocol Stop: 11/04/18 08:59 Last Admin: 11/03/18 10:25 Dose: 30 mg Documented by: [email or web address] (Xifaxan) 550 mg PO [facility] Stop: 11/29/18 08:59 Last Admin: 11/03/18 09:53 Dose: 550 mg Documented by: [id number] Admin: 11/02/18 20:33 Dose: 550 mg Documented by: [id number] Admin: 11/02/18 07:35 Dose: 550 mg Documented by: [id number] Admin: 11/01/18 20:56 Dose: 550 mg Documented by: [id number] Admin: 11/01/18 07:39 Dose: 550 mg Documented by: [id number] Admin: 10/31/18 20:25 Dose: 550 mg Documented by: [id number] Admin: 10/31/18 08:34 Dose: 550 mg Documented by: [id number] Admin: 10/30/18 20:49 Dose: 550 mg Documented by: [id number] Admin: 10/30/18 08:38 Dose: 550 mg Documented by: [id number] Fluticasone/Salmeterol (Advair Diskus 250/50) 1 puffs INH BID [facility]HA[facility] Stop: 11/30/18 20:59 Last Admin: 11/03/18 09:13 Dose: Not Given Documented by: [id number] Admin: 11/02/18 20:31 Dose: 1 puffs Documented by: [id number] Admin: 11/02/18 07:34 Dose: 1 puffs Documented by: [id number] Admin: 11/01/18 20:56 Dose: 1 puffs Documented by: [id number] Admin: 11/01/18 07:37 Dose: 1 puffs Documented by: [id number] Admin: 10/31/18 20:24 Dose: 1 puffs Documented by: [id number] Spironolactone (Aldactone) 50 mg PO TID [facility] Stop: 11/29/18 08:59 Last Admin: 11/01/18 07:39 Dose: 50 mg Documented by: [id number] Admin: 10/31/18 20:25 Dose: 50 mg Documented by: [id number] Admin: 10/31/18 13:34 Dose: 50 mg Documented by: [id number] Admin: 10/31/18 08:34 Dose: 50 mg Documented by: [id number] Admin: 10/30/18 20:49 Dose: 50 mg Documented by: [id number] Admin: 10/30/18 12:49 Dose: 50 mg Documented by: [id number] Admin: 10/30/18 08:38 Dose: 50 mg Documented by: [id number]
--- NOTE | 2018-11-03 06:58 | XRay Report ---
XR chest 1V portable CLINICAL HISTORY: sob dyspnea COMPARISON STUDY: 11/01/2018 FINDINGS: Progressive pulmonary edema. Diffuse bilateral parenchymal infiltrative change is again pro gressive from the prior study. Diaphragms are smooth. Mild stable cardia megaly. IMPRESSION: Progressive pulmonary edema The above report was generated using voice recognition software. It may contain grammatical, syntax or spelling errors. Electronically signed by: Jamel Taylor M.D. 11/03/2018 6:57 AM
[2018-11-03] MEDS: ALBUT/IPRATROP 3MG/0.5MG NEB 3 ML VIAL NEB SCH ×4 (07:31→22:50)
[2018-11-03] MEDS ORDERED: RAPID SEQUENCE INDUCTION BAG ONE (08:23)
[2018-11-03] MEDS ORDERED: MIDAZOLAM HCL 1 MG/ML 2ML VIAL IV PRN (08:36)
[2018-11-03] MEDS ORDERED: OCTREOTIDE BOLUS FROM BAG IV ONE (08:45)
[2018-11-03] MEDS ORDERED: CEFEPIME 2,000 MG in SYRINGE 7.5 ML IV ONE (09:00)
[2018-11-03] MEDS ORDERED: OSELTAMIVIR PHOSPHATE SUSP 30 MG/5 ML UDP PO SCH (09:00)
--- NOTE | 2018-11-03 09:04 | XRay Report ---
XR chest 1V portable CLINICAL HISTORY: lines tube position COMPARISON STUDY: 11/03/2018 5:28 AM FINDINGS: Endotracheal tube 2 cm below the arianna. Nasogastric tube within the stomach. Findings of p ulmonary edema are stable compared to the prior exam. IMPRESSION: 1. Interval placement of an endotracheal tube 2 cm above the arianna. 2. Nasogastric tube within the stomach. 3. Stable findings of pulmonary edema The above report was generated using voice recognition software. It may contain grammatical, syntax or spelling errors. Electronically signed by: Jamel Taylor M.D. 11/03/2018 9:03 AM
[2018-11-03] MEDS: fentaNYL citrate 100 MCG/2 ML VIAL IV PRN ×3 (09:06→13:05)
[2018-11-03] MEDS: OCTREOTIDE ACETATE 500 MCG in 0.9 % SODIUM CHLORIDE 100 ML IV SCH ×2 (09:08→16:12)
[2018-11-03] MEDS ORDERED: CEFEPIME CONSULT ACTIVE PRN (09:10)
[2018-11-03] MEDS ORDERED: VANCOMYCIN CONSULT ACTIVE PRN (09:10)
[2018-11-03] MEDS: FLUTICASONE/SALMETEROL 250/50 (ADVAIR) 14 PUFF/1 INHALER INH SCH (09:13)
[2018-11-03] MEDS ORDERED: PROPOFOL 1,000 MG/100 ML VIAL IV STA (09:29)
[2018-11-03] MEDS ORDERED: PROPOFOL IV EMULSION 10 MG/ML 100 ML VIAL IV ONE (09:29)
[2018-11-03] MEDS ORDERED: NOVASOURCE RENAL 2.0 CAL 1000ML BAG GT SCH (09:30)
--- NOTE | 2018-11-03 09:43 | Pharmacy Report ---
Pharmacy Abx Dose Short Note - Date of Service November 03, 2018 - Assessment & Plan Assessment * 58 year old F transferred to ICU secondary to hypoxemic respiratory failure, pulmonary edema, influenza A, bronchitis/CAP * Today is day # 6 of hospitalization * She had been receiving Doxycycline x 5 days. Unit Control Clerk expanding abx coverage by adding Cefepime + Vancomycin * CXR read as progressive pulmonary edema * Procal 0.25 * Nasal MRSA swab negative this AM making MRSA pneumonia less likely * BLCX's have been ordered * Pt does have underlying cirrhosis and there is concern for hepatorenal syndrome. IZABEL has worsened over the last 24 hrs. Plan Vancomycin * Loading dose: 2000mg IV x 1 (~22mg/kg) * Goal trough level for pulm infxn : 15 to 20 mcg/mL * Estimated half-life > 24 hrs in this patient, repeat dosing will be guided by random levels. * Random level has been ordered w/ tomorrow AM's labs. Plan to redose when level 15-20 or anticipated to be within this range Cefepime * eCrCl 11-29cc/min; max recommended dose is 2gm IV Q 24 hrs Pharmacy will continue to follow and will adjust dose/frequency as necessary. Thank you.
[2018-11-03] MEDS ORDERED: PHYTONADIONE 5 MG in SODIUM CHLORIDE 0.9% 50 ML IV SCH (09:45)
[2018-11-03] MEDS: RIFAXIMIN 550 MG TABLET PO SCH ×2 (09:53→22:51)
[2018-11-03] MEDS: MIDODRINE HCL 2.5 MG TAB PO SCH ×3 (09:53→16:02)
[2018-11-03] MEDS: NYSTATIN SUSP 500,000 U/5 ML UDC PO SCH ×4 (09:53→22:47)
[2018-11-03] MEDS ORDERED: methylPREDNISolone 40 MG in SYRINGE 0 ML IV SCH (10:00)
[2018-11-03] MEDS ORDERED: FUROSEMIDE 40 MG in SYRINGE 0 ML IV ONE (10:00)
[2018-11-03] MEDS ORDERED: VANCOMYCIN HCL 2,000 MG in SODIUM CHLORIDE 0.9% 500 ML IV ONE (10:00)
--- NOTE | 2018-11-03 10:22 | Gastroenterology Progress Note ---
Date of Service November 03, 2018 Assessment & Plan (1) Cirrhosis: (2) Acute kidney failure: (3) Community acquired pneumonia: (4) Influenza A: Patient is a 58 y.o. female with a history of fatty liver associated cirrhosis with noted hepatic decompensation and acute renal failure in the setti ng of active influenza A infection and CAP now with progressive renal failure and respiratory failure. Patient's clinical status at this point is guarded. Discussed with heme/onc. Her CA-125 had risen to 345 in July from 179 in 05/07. Dr. Ayoub had previously informed Hanna Wilson PA-C that the patient could only have consideration of a living donor transplant but that was not certain given her ovarian CA. A call has been placed to Dr. Ayoub's office in this regard. Recommend ongoing supportive management. Supervising Physician Co-Signing Physician Notes Agree with DEYANIRA Crane as above Patient's family is at bedside as clinical status has worsened overnight Continue supportive management as per [facility] team. Subjective Patient has been transferred to the ICU due to pulmonary edema and respiratory failure. She has since been intubated and is sedated. She has been noted to have worsening renal failure as well as a lactate level of 5.8. No liver panel of coags were drawn this am. Review of Systems Unobtainable due to endotracheal tube Physical Exam Vital Signs (Past 24 Hours): Last Vital Signs Temp 36.9 C 11/03/18 05:30 Pulse 120 H 11/03/18 08:49 Resp 16 11/03/18 08:49 BP 113/78 11/03/18 06:01 Pulse Ox 97 11/03/18 08:49 Respiratory: Auscultation: + rales and + rhonchi Cardiovascular: Rate/Rhythm: + tachycardic Gastrointestinal (Abdomen): Inspection/Auscultation: + abdomen distended and normal bowel sounds Psychiatric: sedated Results & Data Laboratory Results Abnormal lab results 11/02/18 11/03/18 11/03/18 Range/Units 14:28 05:12 05:12 WBC 13.65 H (4.8-10.8) K/uL RBC 2.63 L (4.2-5.4) M/uL Hgb 8.9 L 9.0 L (12.0-16.0) g/dL Hct 26.8 L (37-47) % MCV 101.9 H (80-100) fL MCH 34.2 H (25-34) pg RDW Std Deviation 66.3 H (36.4-46.3) fL RDW Coeff of Elysia 17.9 H (11.5-14.5) % Plt Count 79 L D (130-400) K/uL MPV 11.6 H (7.4-10.4) fL Immature Gran # (Auto) 0.30 H (0.00-0.02) K/uL Neut # (Auto) 11.10 H (1.4-6.5) K/uL Lymph # (Auto) 1.19 L (1.2-3.4) K/uL [place] # (Auto) 1.01 H (0.11-0.59) K/uL POC pH (7.35-7.45) POC pO2 (80-95) mmHg POC Total CO2 (24-31) mEq/l POC ABG O2 Sat (90-95) % Sodium 130 L (136-145) mmol/L Chloride 97 L (98-107) mmol/L Anion Gap 12.0 H (3-11) BUN 38 H (7-18) mg/dl Creatinine 3.33 H D (0.6-1.2) mg/dl Glucose 104 H (70-99) mg/dl Lactate (0.4-2.0) mmol/L Ammonia (11-32) umol/L 11/03/18 11/03/18 11/03/18 Range/Units 05:18 06:04 08:55 WBC (4.8-10.8) K/uL RBC (4.2-5.4) M/uL Hgb (12.0-16.0) g/dL Hct (37-47) % MCV (80-100) fL MCH (25-34) pg RDW Std Deviation (36.4-46.3) fL RDW Coeff of Elysia (11.5-14.5) % Plt Count (130-400) K/uL MPV (7.4-10.4) fL Immature Gran # (Auto) (0.00-0.02) K/uL Neut # (Auto) (1.4-6.5) K/uL Lymph # (Auto) (1.2-3.4) K/uL [place] # (Auto) (0.11-0.59) K/uL POC pH 7.33 L (7.35-7.45) POC pO2 56 L (80-95) mmHg POC Total CO2 20 L (24-31) mEq/l POC ABG O2 Sat 88.0 L (90-95) % Sodium (136-145) mmol/L Chloride (98-107) mmol/L Anion Gap (3-11) BUN (7-18) mg/dl Creatinine (0.6-1.2) mg/dl Glucose (70-99) mg/dl Lactate 5.8 H* (0.4-2.0) mmol/L Ammonia 74.0 H (11-32) umol/L (1) Acute kidney failure Acute renal failure type: unspecified Qualified Code(s): N17.9 - Acute kidney failure, unspecified (2) Cirrhosis Ascites presence: without ascites Hepatic cirrhosis type: unspecified hepatic cirrhosis Qualified Code(s): K74.60 - Unspecified cirrhosis of liver (3) Community acquired pneumonia Laterality: unspecified laterality Qualified Code(s): J18.9 - Pneumonia, unspecified organism
[2018-11-03] MEDS: guaiFENesin 600 MG TABCR PO SCH (10:39)
[2018-11-03] MEDS: BENZONATATE 100 MG CAPSULE PO SCH (10:40)
[2018-11-03] MEDS: PANTOprazole 40 MG TAB PO SCH (10:40)
[2018-11-03] MEDS: predniSONE 20 MG TAB PO SCH (10:40)
[2018-11-03] MEDS: DOXYCYCLINE HYCLATE 100 MG CAP PO SCH (10:40)
[2018-11-03 10:48] VITALS: TEMP 98.2
[2018-11-03] MEDS ORDERED: FAMOTIDINE 20 MG in SYRINGE 3 ML IV SCH (11:00)
[2018-11-03 11:23] LABS: INR 1.9 (0.9-1.1)
[2018-11-03] MEDS ORDERED: DOXYCYCLINE HYCLATE 100 MG in DEXTROSE 5% 100 ML IV SCH (12:00)
[2018-11-03 12:04] LABS: Partial Thromboplastin Ratio 1.4; Partial Thromboplastin Time 36.9 Seconds (21.0-31.0); Prothrombin Time 19.6 Seconds (9.0-12.0)
[2018-11-03 12:12] LABS: Albumin Level 3.2 gm/dl (3.4-5.0); Bilirubin Direct 3.3 mg/dl (0-0.2); Bilirubin,Total 7.1 mg/dl (0.2-1); Total Protein 6.2 gm/dl (6.4-8.2)
--- NOTE | 2018-11-03 12:38 | Nephrology Progress Note ---
Date of Service November 03, 2018 Assessment & Plan (1) Cirrhosis: -- MELD 35 -- Prognosis guarded -- Previously told that she would not be a liver transplant candidate, GI looking to confirm this status (2) Acute kidney failure: -- Urine sodium 6 consistent with HRS, however UOP has improved and BP is thankfully acceptable -- Granular casts noted consistent with ATN (suspect a component of STEPHANIE related to CTA) -- No emergent need for dialysis at this time but high likelihood for progression of IZABEL given severity of illness -- Baseline creatinine 1.0 mg/dL -- Suggest continued diuresis, additional 40 mg IV furosemide given this AM -- Hold albumin for now -- Hold midodrine for MAP >65 -- Continue octreotide gtt -- Renal US requested -- Document I/O's -- Repeat metabolic profile tomorrow AM -- Confirm liver transplant candidacy -- Medications are appropriately dosed for kidney function 35 minutes of critical care time provided today. (3) Community acquired pneumonia: (4) Influenza A: (5) Anemia: -- Transfusion support to maintain Hgb > 8 -- Monitor closely -- Check peripheral smear -- Acute on chronic with acute on chronic thrombocytopenia suspected related to worsening portal HTN -- No signs of active bleeding Subjective Jennifer developed respiratory distress overnight. She is intubated in the ICU today. She was encephalopathic late yesterday afternoon. She was hypoxic with notable increase in work of breathing. She was transitioned from BIPAP to VDRF. Jennifer remains afebrile. Urine output improved following a dose of IV furosemi de. BP is acceptable. She was sedated this morning. I discussed the plan of care with Dr. Restrepo and Vinh Jensen PA-C. Review of Systems Unobtainable due to cognitive status Physical Exam Vital Signs (Past 24 Hours): Last Vital Signs Temp 36.8 C 11/03/18 10:01 Pulse 102 H 11/03/18 12:01 Resp 22 11/03/18 11:30 BP 115/48 L 11/03/18 12:01 Pulse Ox 97 11/03/18 12:01 Constitutional: + acute distress, + altered mental status and + edematous Eyes: + scleral abnormality; no corneal abnormality ENMT: ETT Neck: normal visual inspection and trachea midline Respiratory: no respiratory distress Auscultation: + rales; no wheezes Cardiovascular: Rate/Rhythm: + tachycardic Heart Sounds: normal S1 and normal S2; no murmur and no cardiac rub Extremities: no edema Gastrointestinal (Abdomen): Inspection/Auscultation: + abdomen distended Percussion/Palpation: abdomen soft; abdomen nontender Musculoskeletal: Extremities: no cyanosis, no clubbing and no petechiae Skin: + turgor decreased; no rashes Neurologic: Motor/Sensory: no tremor and no asterixis Results & Data Laboratory Results Laboratory Results - last 24 hr 11/02/18 11/02/18 11/03/18 14:28 14:28 05:12 WBC 13.65 H RBC 2.63 L Hgb 8.9 L 9.0 L Hct 26.8 L MCV 101.9 H MCH 34.2 H MCHC 33.6 RDW Std Deviation 66.3 H RDW Coeff of Elysia 17.9 H Plt Count 79 L D MPV 11.6 H Immature Gran % (Auto) 2.2 Neut % (Auto) 81.3 Lymph % (Auto) 8.7 [place] % (Auto) 7.4 Eos % (Auto) 0.0 Baso % (Auto) 0.4 Immature Gran # (Auto) 0.30 H Neut # (Auto) 11.10 H Lymph # (Auto) 1.19 L [place] # (Auto) 1.01 H Eos # (Auto) 0.00 Baso # (Auto) 0.05 Polychromasia 1+ Tear Drop Cells 1+ Ovalocytes 1+ Echinocytes 1+ PT INR APTT PTT Ratio Sample Site POC pH POC pCO2 POC pO2 POC HCO3 POC Total CO2 POC Base Excess POC ABG O2 Sat Moises Test O2 Delivery Device POC FiO2 Sodium Potassium Chloride Carbon Dioxide Anion Gap BUN Creatinine Est Cr Clr Drug Dosing Est GFR ( Amer) Est GFR (Non-Af Amer) BUN/Creatinine Ratio Glucose Lactate Calcium Phosphorus Magnesium Total Bilirubin Direct Bilirubin AST ALT Alkaline Phosphatase Ammonia Total Protein Albumin Procalcitonin Nasal Screen MRSA (PCR) Blood Type O Positive Antibody Screen NEGATIVE 11/03/18 11/03/18 11/03/18 05:12 05:18 05:18 WBC RBC Hgb Hct MCV MCH MCHC RDW Std Deviation RDW Coeff of Elysia Plt Count MPV Immature Gran % (Auto) Neut % (Auto) Lymph % (Auto) [place] % (Auto) Eos % (Auto) Baso % (Auto) Immature Gran # (Auto) Neut # (Auto) Lymph # (Auto) [place] # (Auto) Eos # (Auto) Baso # (Auto) Polychromasia Tear Drop Cells Ovalocytes Echinocytes PT 19.0 H INR 1.9 H APTT PTT Ratio Sample Site L Radial POC pH 7.33 L POC pCO2 35 POC pO2 56 L POC HCO3 19 POC Total CO2 20 L POC Base Excess -8.0 POC ABG O2 Sat 88.0 L Moises Test Pass O2 Delivery Device Other POC FiO2 100 Sodium 130 L Potassium 4.0 Chloride 97 L Carbon Dioxide 21 Anion Gap 12.0 H BUN 38 H Creatinine 3.33 H D Est Cr Clr Drug Dosing 20.4 Est GFR ( Amer) 16.8 Est GFR (Non-Af Amer) 14.5 BUN/Creatinine Ratio 11.4 Glucose 104 H Lactate Calcium 8.7 Phosphorus 4.7 Magnesium 2.3 Total Bilirubin Direct Bilirubin AST ALT Alkaline Phosphatase Ammonia Total Protein Albumin Procalcitonin Nasal Screen MRSA (PCR) Blood Type Antibody Screen 11/03/18 11/03/18 11/03/18 05:30 06:04 06:04 WBC RBC Hgb Hct MCV MCH MCHC RDW Std Deviation RDW Coeff of Elysia Plt Count MPV Immature Gran % (Auto) Neut % (Auto) Lymph % (Auto) [place] % (Auto) Eos % (Auto) Baso % (Auto) Immature Gran # (Auto) Neut # (Auto) Lymph # (Auto) [place] # (Auto) Eos # (Auto) Baso # (Auto) Polychromasia Tear Drop Cells Ovalocytes Echinocytes PT INR APTT PTT Ratio Sample Site POC pH POC pCO2 POC pO2 POC HCO3 POC Total CO2 POC Base Excess POC ABG O2 Sat Moises Test O2 Delivery Device POC FiO2 Sodium Potassium Chloride Carbon Dioxide Anion Gap BUN Creatinine Est Cr Clr Drug Dosing Est GFR ( Amer) Est GFR (Non-Af Amer) BUN/Creatinine Ratio Glucose Lactate 5.8 H* Calcium Phosphorus Magnesium Total Bilirubin Direct Bilirubin AST ALT Alkaline Phosphatase Ammonia Total Protein Albumin Procalcitonin 0.25 Nasal Screen MRSA (PCR) Negative Blood Type Antibody Screen 11/03/18 11/03/18 11/03/18 08:55 09:04 11:38 WBC RBC Hgb Hct MCV MCH MCHC RDW Std Deviation RDW Coeff of Elysia Plt Count MPV Immature Gran % (Auto) Neut % (Auto) Lymph % (Auto) [place] % (Auto) Eos % (Auto) Baso % (Auto) Immature Gran # (Auto) Neut # (Auto) Lymph # (Auto) [place] # (Auto) Eos # (Auto) Baso # (Auto) Polychromasia Tear Drop Cells Ovalocytes Echinocytes PT 19.6 H INR 2.0 H APTT 36.9 H PTT Ratio 1.4 Sample Site POC pH POC pCO2 POC pO2 POC HCO3 POC Total CO2 POC Base Excess POC ABG O2 Sat Moises Test O2 Delivery Device POC FiO2 Sodium Potassium Chloride Carbon Dioxide Anion Gap BUN Creatinine Est Cr Clr Drug Dosing Est GFR ( Amer) Est GFR (Non-Af Amer) BUN/Creatinine Ratio Glucose Lactate Calcium Phosphorus Magnesium Total Bilirubin Direct Bilirubin AST ALT Alkaline Phosphatase Ammonia 74.0 H Cancelled Total Protein Albumin Procalcitonin Nasal Screen MRSA (PCR) Blood Type Antibody Screen 11/03/18 11:38 WBC RBC Hgb Hct MCV MCH MCHC RDW Std Deviation RDW Coeff of Elysia Plt Count MPV Immature Gran % (Auto) Neut % (Auto) Lymph % (Auto) [place] % (Auto) Eos % (Auto) Baso % (Auto) Immature Gran # (Auto) Neut # (Auto) Lymph # (Auto) [place] # (Auto) Eos # (Auto) Baso # (Auto) Polychromasia Tear Drop Cells Ovalocytes Echinocytes PT INR APTT PTT Ratio Sample Site POC pH POC pCO2 POC pO2 POC HCO3 POC Total CO2 POC Base Excess POC ABG O2 Sat Moises Test O2 Delivery Device POC FiO2 Sodium Potassium Chloride Carbon Dioxide Anion Gap BUN Creatinine Est Cr Clr Drug Dosing Est GFR ( Amer) Est GFR (Non-Af Amer) BUN/Creatinine Ratio Glucose Lactate Calcium Phosphorus Magnesium Total Bilirubin 7.1 H D Direct Bilirubin 3.3 H AST 71 H ALT 34 Alkaline Phosphatase 85 Ammonia Total Protein 6.2 L Albumin 3.2 L Procalcitonin Nasal Screen MRSA (PCR) Blood Type Antibody Screen (1) Cirrhosis Ascites presence: without ascites Hepatic cirrhosis type: unspecified hepatic cirrhosis Qualified Code(s): K74.60 - Unspecified cirrhosis of liver (2) Acute kidney failure Acute renal failure type: unspecified Qualified Code(s): N17.9 - Acute kidney failure, unspecified (3) Community acquired pneumonia Laterality: unspecified laterality Qualified Code(s): J18.9 - Pneumonia, unspecified organism (4) Anemia Anemia type: unspecified type Qualified Code(s): D64.9 - Anemia, unspecified
--- NOTE | 2018-11-03 14:56 | Hospitalist Progress Note ---
Date of Service November 03, 2018 Assessment & Plan (1) Acute respiratory failure: Patient developed acute respiratory failure secondary to pulmonary edema from renal failure. She is being supported by ventilation assist control, attempts at diuresis will continued. this pt is mortally ill, and discussion regarding palliative care is undertaken by icu team (2) Acute kidney failure: Rapid rise in creatinine over the last few days having concern for hepatorenal syndrome FeNa nearly 0. Urine Na 6. With her known advanced cirrhosis and acute renal failure is concerning for hepatorenal syndrome type 1 , however does not have massive ascites and initial infectious source being influenza Nephrology is continuing to follow, renal ultrasound without obstructive uropathy Started midodrine 5mg TID. Octreotide infusion HOLDING Aldactone and lasix. Checked cortisol level - 18. moore for good I/O output If Hepatorenal syndrome is present - cause? possibly the stress of the recent flu infection. NO symptoms/signs of SBP but could consider a diagnostic paracentesis. Her meld score is 33 on 11/02 (3) Influenza A: tamiflu x 5 days LAST DOSE 11/03 (4) Community acquired pneumonia: atypical pneumonia vs viral (flu) (5) Cirrhosis: Patient with cirrhosis thought to be secondary to fatty liver disease/JAVIER. She follows with hepatology at [facility]. She had an EGD performed in 2016 which showed no varices. She had a colonoscopy performed in 2012. Dr Ford reviewed the outpatient [employer] record. There is a note from Dr. Ayoub - [facility] - from 06/2018. Transplant was heavily discussed at that visit, but given the concern of active ovarian cancer, there was little hope she would be a transplant candidate. The patient and her confirm she has been told since that time that she is NOT a liver transplant candidate. Her oncologist has also told her this. No indication to transfer to [facility] at this time. She also told me late in the day today that she "doesn't want to go to [facility]" for any reason. (6) Ovarian cancer: Patient diagnosed with ovarian cancer in 2010. She comments that it had low malignant potential. Underwent surgical excision (total abdominal hysterectomy/BSO) in 2010. CT abd/pelvis from 09/2018 suggests metastatic disease. CA-125 has been high as well (345 on 10/19/18). (7) Acute bronchitis: 2nd to the flu virus. cont prednisone 40mg daily, duonebs q6h, mucinex, advair doxycycline for possible secondary pneumonia (8) Chronic airway obstruction, not elsewhere classified: suspect COPD from long-standing smoking history. (9) Hyponatremia: 2nd to cirrhosis and ARF. (10) Anemia: 2nd to cirrhosis/liver disease. 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 stable. (12) Tobacco use disorder: recently quit declines nicoderm (13) DVT prophylaxis: chemical means contraindicated due to low platelets SCDs ambulating updated at bedside today multiple times today Subjective Patient has significant decompensation overnight having respiratory distress and hypoxemia. Initially attempted to be staved off by using BiPAP however the patient was intolerant of BiPAP mask and kept removing it. She desaturated profoundly was eventually intubated by intensive care unit services and now is ventilated. She is sedated with propofol. Patient likely had some pulmonary edema secondary to holding her diuretic therapy due to the concern for hepatorenal syndrome. Patient is continued to make good urine at this time and was given diuretics by nephrology. Family's been counseled by intensive care team regarding the direction of care given the fact that she has nonalcoholic state hepatitis renal failure and progressive ovarian cancer which is been known for some time. Patient is sedated on propofol Review of Systems Unobtainable due to endotracheal tube Physical Exam Vital Signs (Past 24 Hours): Last Vital Signs Temp 36.8 C 11/03/18 10:01 Pulse 102 H 11/03/18 12:01 Resp 22 11/03/18 11:30 BP 115/48 L 11/03/18 12:01 Pulse Ox 97 11/03/18 12:01 The patient appeared severely ill Vital signs as documented. Lower MIP Head exam is unremarkable. normocephalic, atraumatic some bleeding from her oropharynx Neck is with jugular venous distension, trachea is midline Lungs are coarse bilaterally Cardiac exam reveals Rhythm is regular. Tachycardic at times first and second heart sounds normal. Abdominal exam reveals distention dull to percussion hypoactive bowel sounds, Extremities are moderately edematous Neurologic exam is obtunded and sedate Skin is jaundiced (1) Acute kidney failure Acute renal failure type: unspecified Qualified Code(s): N17.9 - Acute kidney failure, unspecified (2) Community acquired pneumonia Laterality: unspecified laterality Qualified Code(s): J18.9 - Pneumonia, unspecified organism (3) Cirrhosis Ascites presence: without ascites Hepatic cirrhosis type: unspecified hepatic cirrhosis Qualified Code(s): K74.60 - Unspecified cirrhosis of liver (4) Ovarian cancer Laterality: unspecified laterality Qualified Code(s): C56.9 - Malignant neoplasm of unspecified ovary (5) Acute bronchitis Bronchitis organism: unspecified organism Qualified Code(s): J20.9 - Acute bronchitis, unspecified (6) Anemia Anemia type: unspecified type Qualified Code(s): D64.9 - Anemia, unspecified
[2018-11-03] MEDS ORDERED: PROPOFOL 1,000 MG/100 ML VIAL IV SCH (16:15)
--- NOTE | 2018-11-03 17:21 | Procedure Note ---
Procedure Note Date of Service November 03, 2018 Procedure Date: Noted above Procedure: Endotracheal intubation Pre-procedure Diagnosis: Acute hypoxic respiratory failure Post-procedure Diagnosis: same as above Prior to Procedure: Informed Consent: emergent Attending Staff: Kyung Mccartney DO Indications: Patient is a 58-year-old female who is unable to follow directions secondary to hepatic encephalopathy and continually discontinues her noninvasive ventilator for acute hypoxic respiratory failure The identity of the patient was confirmed and a bedside time out was performed. Description of Procedure: Patient was evaluated and required intubation for impending respiratory failure. The patient was prepared in the usual fashion. A Mac 3 laryngoscope was used. A 7.5 endotrachial tube was placed endotracheally to 20 cm at the gum ridge. A grade 1 view was obtained. The endotracheal tube was noted to pass through the vocal cords. Chest rise was bilateral. Bilateral breath sounds were heard without air sounds in the abdomen. Mist was noted in the endotracheal tube. End-tidal CO2 measurement was positive. Chest x-ray shows proper endotracheal tube placement. Complications: None Findings: Not applicable Specimens: Not applicable Estimated blood loss: Zero
[2018-11-03] MEDS ORDERED: MoRPHine SULF/NSS 250 MG/250 ML BTL IV SCH (17:42)
[2018-11-03] MEDS ORDERED: LORazepam 1 MG/2 ML VIAL IV PRN (17:44)
[2018-11-03] MEDS ORDERED: LORazepam 2 MG/4 ML VIAL IV STA (22:20)
[2018-11-04 01:37] VITALS: BP 108/44; PULSE 37; O2SAT 30
--- NOTE | 2018-11-04 02:08 | Death Summary ---
Date of Service November 04, 2018 Pronouncement Note Date and Time of Date of : 11/04/18 Time of : 01:11 Contributing Factors (1) Admitted to intensive care unit: Contributing factors: liver cirrhosis, ovarian cancer, cirrhosis Additional Data Confirmation of : no pulse, no respirations, no heart sounds and pupils fixed and dilated Family: at bedside Attending/PCP notified?: Yes Attending physician: Colton Restrepo MD Was code activated?: No
[2018-11-04] MEDS ORDERED: CEFEPIME 2,000 MG in SYRINGE 7.5 ML IV SCH (09:00)
== END 2018-11-04 01:11 | disposition expired | DRG 441 ==
LOC: ED 21:25 → 2W 10-30 02:08 → SUATTDRO 10-30 02:08 → 2W 10-30 02:35 → 1E 11-03 05:20